=== PATIENT | male | born 1960 | race Hispanic/Latino ===

== ENCOUNTER 2017-01-05 12:42 | Inpatient (IN) | payer OTHER ==
[2017-01-05] MEDS ORDERED: Albuterol-Ipratrop 3 mg / 0.5 (3 ml) UD IH STA ×2 (13:25→13:26)
--- NOTE | 2017-01-05 13:26 | ED PDOC ---
HPI: General Adult Time Seen by Provider: 01/05/17 13:17 Chief Complaint (Nursing): Fever Chief Complaint (Provider): Weakness History Per: Patient History/Exam Limitations: no limitations Onset/Duration Of Symptoms: Days (Tues) Current Symptoms Are (Timing): Still Present Additional Complaint(s): Weakness all over, bodyaches, R upper back pain. Decreased appetite. No dyspnea, cough, runny nose, nasal congestion. No numbness, tingles. No headaches or dizziness. Had pneumonia in the past. Has PE hx 40yrs ago and is on coumadin. HIV pos. Past Medical History Reviewed: Nursing Documentation, Vital Signs Vital Signs: Last Vital Signs Temp 101.1 F H 01/05/17 13:07 Pulse 165 H 01/05/17 13:07 Resp 20 01/05/17 13:07 BP 115/78 01/05/17 13:07 Pulse Ox 92 L 01/05/17 13:46 - Medical History PMH: HIV, Hypercholesterolemia, Pneumonia - Surgical History Surgical History: Appendectomy - Family History Family History: States: Unknown Family Hx - Social History Current smoker - smoking cessation education provided: No Alcohol: None Drugs: Denies - Immunization History Hx Tetanus Toxoid Vaccination: Yes (unknown date) Hx Influenza Vaccination: Yes Hx Pneumococcal Vaccination: Yes - Home Medications Home Medications: Ambulatory Orders Medication Instructions Recorded 5-Hydroxytryptophan (5-Htp) [5-Htp] 1 cap PO DAILY 01/05/17 Acetaminophen with Codeine 1 tab PO Q4H PRN 01/05/17 [Tylenol with Codeine #3 Tablet] Emtricitabine/Tenofovir Diso 1 tab PO DAILY 01/05/17 [Truvada 200 MG-300 MG] Finasteride [Proscar] 5 mg PO DAILY 01/05/17 Gabapentin [Neurontin] 300 mg PO TID 01/05/17 Multivitamin [Multi-Vitamin Daily] 1 tab PO DAILY 01/05/17 Nevirapine [Viramune] 200 mg PO BID 01/05/17 Oxandrolone [Oxandrin] 10 mg PO BID 01/05/17 Rosuvastatin Calcium [Crestor] 10 mg PO DAILY 01/05/17 Tamsulosin [Flomax] 0.4 mg PO DAILY 01/05/17 Testosterone Cypionate 200 mg PO Q14D 09/21/17 [Depo-Testosterone Inj] Testosterone [Androgel] 1 appl TOP DAILY 01/05/17 Valacyclovir HCl [Valacyclovir] 500 mg PO DAILY 01/05/17 Warfarin [Coumadin] 10 mg PO DAILY 01/05/17 buPROPion XL [Wellbutrin XL] 300 mg PO DAILY 01/05/17 traZODone [Desyrel] 100 mg PO HS 01/05/17 - Allergies Allergies/Adverse Reactions: Allergies Allergy/AdvReac Type Severity Reaction Status Date / Time No Known Allergies Allergy Verified 11/19/14 12:59 Review of Systems ROS Statement: Except As Marked, All Systems Reviewed And Found Negative Constitutional: Positive for: Weakness Musculoskeletal: Positive for: Back Pain, Other (bodyaches) Neurological: Positive for: Weakness Physical Exam - Reviewed Nursing Documentation Reviewed: Yes Vital Signs Reviewed: Yes - Physical Exam Appears: Positive for: Uncomfortable Head Exam: Positive for: ATRAUMATIC, NORMAL INSPECTION, NORMOCEPHALIC Skin: Positive for: Normal Color, Warm, DRY Eye Exam: Positive for: EOMI, Normal appearance, PERRL ENT: Positive for: Normal ENT Inspection Neck: Positive for: Normal, Painless ROM Cardiovascular/Chest: Positive for: Regular Rate, Rhythm, Chest Non Tender. Negative for: Edema Respiratory: Positive for: Decreased Breath Sounds, Wheezing (mild b/l). Negative for: Accessory Muscle Use Gastrointestinal/Abdominal: Positive for: Normal Exam, Bowel Sounds, Soft. Negative for: Tenderness Back: Positive for: Other (mild R upper back). Negative for: L CVA Tenderness, R CVA Tenderness Extremity: Positive for: Normal ROM. 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 Negative for: Motor/Sensory Deficits, Facial Droop - Laboratory Results Result Diagrams: 01/05/17 13:40 01/05/17 13:40 Interpretation Of Abn Labs: 16.7 wbc - ECG ECG: Positive for: Interpreted By Me, Viewed By Me Interpretation Of Abn EKG: aflutter Interpretation Of ECG: repeat EKG: HR 156 afib. O2 Sat by Pulse Oximetry: 92 Pulse Ox Interpretation: Abnormal - Radiology X-Ray: Interpreted by Me, Viewed By Me X-Ray Interpretation: Infiltrates (RLL) - Progress ED Course And Treament: 1340: Fluids for hydration. Continue monitoring hr and fever. Likely improvement expected post tylenol and fluids. Consider repeat ekg and meds for aflutter if needed. Source of infection in lungs. 1451: Stable. Spoke with Dr. Chatterjee. Will admit ICU. Spoke with [facility] Dr. Jimenez. Will admit. Pt. feels better. AAOx3. Speaking in full sentences. 1537: Stable. Spoke with Dr. Hartmann. Made aware of presentation and findings. Wants pt. to get 10mg IV cardizem. No drip. Continue fluids. - Critical Care Total Time (In Min): 60 Documented Critical Care: Time excludes all time spent performint seperately billable procedures Disposition - Clinical Impression Clinical Impression: Pneumonia, Atrial fibrillation, Severe sepsis - Patient ED Disposition Is Patient to be Admitted: Yes Counseled Patient/Family Regarding: Studies Performed, Diagnosis - Disposition Disposition Time: 14:54 Condition: CRITICAL - Pt Status Changed To: Hospital Disposition Of: Inpatient - Admit Certification Admit to Inpatient:: After my assessment, the patient will require hospitalization for at least two midnights. This is because of the severity of symptoms shown, intensity of services needed, and/or the medical risk in this patient being treated as an outpatient. - POA Present On Arrival: None
[2017-01-05] MEDS ORDERED: Albuterol-Ipratrop 3 mg / 0.5 (3 ml) UD ONE (13:34)
[2017-01-05] MEDS ORDERED: cefTRIAXone (Rocephin) 1 gm Inj IV ONE (13:40)
[2017-01-05 14:03] LABS: ABG ALLEN TEST YES; ARTERIAL BLOOD GAS HCO3 25.2 mmol/L (21-28); ARTERIAL BLOOD GAS PO2 67 mm/Hg (80-100)
[2017-01-05 14:05] LABS: BASO % 0.1 % (0.0-2.0); HEMATOCRIT 46.5 % (35.0-51.0); LYMPH # 0.7 K/uL (1.0-4.3); LYMPH % 4.4 % (20.0-40.0); MEAN CELL VOLUME 87.6 fl (80.0-94.0); MEAN CORPUSCULAR HEMOGLOBIN 28.7 pg (27.0-31.0); MEAN CORPUSCULAR HGB CONC 32.8 g/dL (33.0-37.0); MEAN PLATELET VOLUME 7.9 fl (7.2-11.7); MONO # 0.9 K/uL (0.0-0.8); MONO % 5.5 % (0.0-10.0); PLATELET COUNT 178 K/uL (130-400); WHITE BLOOD COUNT 16.7 K/uL (4.8-10.8)
[2017-01-05] MEDS ORDERED: cefTRIAXone (Rocephin) 1 gm Inj ONE (14:15)
[2017-01-05] MEDS ORDERED: Azithromycin 500 MG IV IVPB ONE (14:15)
[2017-01-05 14:22] LABS: ALKALINE PHOSPHATASE 87 U/L (38-126); ALT/SGPT 44 U/L (21-72); AST/SGOT 30 U/L (17-59); BLOOD UREA NITROGEN 13 mg/dl (9-20); CALCIUM 8.2 mg/dL (8.4-10.2); CARBON DIOXIDE 22 mmol/L (22-30); CHLORIDE 100 mmol/L (98-107); GFR AFRICAN-AMERICAN > 60; GLUCOSE,RANDOM 108 mg/dL (75-110); POTASSIUM 4.3 MMOL/L (3.6-5.0); SODIUM 130 mmol/l (132-148); TOTAL PROTEIN 6.2 G/DL (6.3-8.2)
[2017-01-05 14:23] LABS: ALB/GLOB RATIO 1.1 (1.0-2.1)
--- NOTE | 2017-01-05 14:27 | RAD ---
HISTORY: Sepsis Patient COMPARISON: 04/06/2013. FINDINGS: LUNGS: The lungs are well inflated. There is dense consolidation in the right lower lobe. PLEURA: Small right pleural effusion. No large left pleural effusion. No pneumothorax. CARDIOVASCULAR: Normal. OSSEOUS STRUCTURES: No significant abnormalities. VISUALIZED UPPER ABDOMEN: Normal. OTHER FINDINGS: None. IMPRESSION: Right lower lobe pneumonia and small right pleural effusion. Follow-up after medical management is recommended to ensure complete resolution.
[2017-01-05] MEDS ORDERED: Acetaminophen-Codeine 300/30 mg Tab PO PRN (14:55)
[2017-01-05 14:57] LABS: PARTIAL THROMBOPLASTIN TIME 50.7 Seconds (25.6-37.1)
[2017-01-05] MEDS ORDERED: Potassium Phosphate 30 MMOLE in Dextrose 5% In Water 250 ML IV ONE (15:20)
[2017-01-05 16:01] LABS: NEUTROPHIL 86 % (42-75); TOTAL CELLS COUNTED 100
[2017-01-05 16:17] LABS: RBC URINE 6 /hpf (0-3); URINE BACTERIA RARE (<OCC); URINE BILIRUBIN NEGATIVE (NEGATIVE); URINE BLOOD SMALL (NEGATIVE); URINE COLOR YELLOW (YELLOW); URINE GLUCOSE (UA) NEG (Normal); URINE KETONE NEGATIVE (NEGATIVE); URINE LEUKOCYTE ESTERASE NEG Leu/uL (Negative); URINE PROTEIN 30 mg/dL (NEGATIVE); WBC URINE 1 /hpf (0-5)
[2017-01-05] MEDS ORDERED: Sodium Chloride 0.9% 2,500 ML IV SCH (16:45)
--- NOTE | 2017-01-05 16:56 | CP.CCUPN ---
CCU Subjective - Physician Review Subjective (Free Text): ICU Consultation for Admission: 56M admitted for SOB, fevers/chills/sweats, Right upper back pain, and tachycardia, found to be in A flutter which changed into A Fib with RVR after 3 L fluid challenge, no overt hypotension noted in ER, presently awake and alert, no obvious distress at bed rest, SPo2 95% on RA, started on Cardizem drip for rate control. Initial eval also noted CXR showing RLL infiltrate. Meds administered in ER noted: Azithro/Rocephin, Tylenol for fever, and steroids. He denies any chest pain, palpitations, cough, recent URI, no travels, nor other new activities, abd pain, change in BMs, weight loss, focal weakness. He is followed by Dr. Brooks in the [facility], states he is on Truvada and another agent and is in the midst of switching to monotherapy. 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 Other vitals and I/O's reviewed. Allergies: NKDA Home Meds: Percocet, Weelbutrin, Emtric/Tenof, Viramune, Valacycolvir, Gabapentine, Oxandrine, Flomax, Proscar, Androgel, Desyrel, Crestor, Warfarin 10mg qd. ROS: No other pertinent negs or positives on 10+ system review. PMSFH: All other Nursing and physician documentation reviewed to date; no new pertinent info noted relevant to current medical problems. Denies ETOH/ Tobacco use. MAJOR PROBLEMS: 1. Acute resp insufficiency 2 RLL Pneumonia without Severe Sepsis or bacteremia 2. New onset / Paroxysmal A Flutter-Fib with RVR 3. Hyponatremia / Hypophosphatemia 4. 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 Testosterone / Androgen therapy Dependency 6. HIV Disease 7. Major Depression PLAN: 1. Empiric abx coverage started. W/u for Cap and atypical organism infection, including Legionella. No further need to continue Solumedrol. 2. IV Cardizem drip 3. ECHO 4. CT Chest 5. HIV status with viral load and T cell studies. 6. Saline IVFs for now, check serum osmo, urine osmo, urine lytes. Could be due to possible SIADH from pneumonia as well. He does not appear to be hypovolemic nor hypervolemic. 7. No need for assisted breathing support. Could be managed further on Telemetry unit and move to ICU if he fails to respond to current abxs or needs MV support. CCU Objective - Vital Signs / Intake & Output Vital Signs (Last 4 hours): Vital Signs Temp Pulse Resp BP Pulse Ox 01/05/17 16:20 98.2 F 136 H 18 117/85 99 01/05/17 16:09 92 L 01/05/17 14:10 101 F H 01/05/17 14:08 98.2 F 86 18 123/86 97 01/05/17 13:07 101.1 F H 165 H 20 115/78 92 L Intake and Output (Last 8hrs): Intake & Output 01/05/17 01/05/17 01/05/17 06:59 14:59 22:59 Weight 205 lb - Physical Exam Head: Positive for: Abrasion Pupils: Positive for: PERRL Extroacular Muscles: Positive for: EOMI Conjunctiva: Positive for: Normal Mouth: Positive for: Moist Mucous Membranes, Normal Tounge Pharnyx: Positive for: Normal Neck: Negative for: JVD, Lymphadenopathy Respiratory/Chest: Positive for: Decreased Breath Sounds (R base), Rhonchi. Negative for: Accessory Muscle Use, Wheezes Cardiovascular: Positive for: Irregular Rhythm, Tachycardic. Negative for: Murmurs, Rub Abdomen: Positive for: Normal Bowel Sounds. Negative for: Tenderness, Distention Lower Extremity: Positive for: Normal Inspection. Negative for: Edema, CALF TENDERNESS, NORMAL PULSES Neurological: Positive for: GCS=15, Speech Normal, Motor Func Grossly Intact, Normal Sensory Function Skin: Positive for: Warm. Negative for: Rashes Psychiatric: Positive for: Alert, Oriented x 3, Normal Concentration, Normal Affect - Medications Active Medications: Active Medications Generic Name Dose Route Start Last Admin Trade Name Freq PRN Reason Stop Dose Admin Acetaminophen 650 mg 01/05/17 15:06 Tylenol 325mg Tab PO Q6H PRN Fever >100.4 F Acetaminophen/Codeine Phosphate 1 tab 01/05/17 14:55 Tylenol/Codeine 300 Mg/30 Mg PO Q4H PRN Pain, severe (8-10) Atorvastatin Calcium 20 mg 01/05/17 22:00 Lipitor PO HS [facility] Emtricitabine/Tenofovir 1 tab 01/06/17 09:00 Truvada 200 Mg-300 Mg PO DAILY [facility] Finasteride 5 mg 01/06/17 09:00 Proscar PO DAILY [facility] Gabapentin 300 mg 01/05/17 17:00 Neurontin PO TID [facility] Home Med 1 cap 01/06/17 09:00 5-Hydroxytryptophan (5-Htp) [5-Htp] PO DAILY [facility] 300 mg 01/06/17 09:00 Bupropion Xl [Wellbutrin Xl] PO DAILY [facility] 1 appl 01/06/17 09:00 Testosterone [Androgel] TOP DAILY [facility] Home Med 500 mg 01/06/17 09:00 Valacyclovir Hcl [Valacyclovir] PO DAILY [facility] Potassium Phosphate 30 mmole/ 260 mls @ 65 mls/hr 01/05/17 15:20 Dextrose IV 01/05/17 19:19 .Q4H ONE Azithromycin 500 mg/ Sodium 250 mls @ 250 mls/hr 01/06/17 09:00 Chloride IVPB DAILY [facility] Ceftriaxone Sodium 1 gm/ 100 mls @ 100 mls/hr 01/06/17 09:00 Sodium Chloride IVPB DAILY [facility] Sodium Chloride 2,500 mls @ 130 mls/hr 01/05/17 16:45 Sodium Chloride 0.9% IV 01/06/17 16:42 .[id number] [facility] Multivitamins/Minerals 1 tab 01/06/17 09:00 Therapeutic-M Tab PO DAILY [facility] Nevirapine 200 mg 01/05/17 17:00 Viramune PO BID [facility] Oxandrolone 10 mg 01/05/17 17:00 Oxandrin PO BID [facility] Tamsulosin HCl 0.4 mg 01/06/17 09:00 Flomax PO DAILY [facility] Trazodone HCl 100 mg 01/05/17 22:00 Desyrel PO HS [facility] - Patient Studies Lab Studies: Lab Studies 01/05/17 01/05/17 01/05/17 Range/Units 15:43 13:53 13:40 WBC (4.8-10.8) K/uL RBC (4.40-5.90) Mil/uL Hgb (12.0-18.0) g/dL Hct (35.0-51.0) % MCV (80.0-94.0) fl MCH (27.0-31.0) pg MCHC (33.0-37.0) g/dL RDW (11.5-14.5) % Plt Count (130-400) K/uL MPV (7.2-11.7) fl Neut % (Auto) (50.0-75.0) % Lymph % (Auto) (20.0-40.0) % [place] % (Auto) (0.0-10.0) % Eos % (Auto) (0.0-4.0) % Baso % (Auto) (0.0-2.0) % Neut # (1.8-7.0) K/uL Lymph # (1.0-4.3) K/uL [place] # (0.0-0.8) K/uL Eos # (0.0-0.7) K/uL Baso # (0.0-0.2) K/uL Neutrophils % (Manual) (42-75) % Lymphocytes % (Manual) (20-50) % Monocytes % (Manual) (0-10) % Platelet Estimate (NORMAL) Anisocytosis (manual) PT (9.8-13.1) Seconds INR (0.9-1.2) APTT (25.6-37.1) Seconds pCO2 29 L (35-45) mm/Hg pO2 67 L (80-100) mm/Hg HCO3 25.2 (21-28) mmol/L ABG pH 7.50 H (7.35-7.45) ABG Total CO2 23.5 (22-28) mmol/L ABG O2 Saturation 97.2 (95-98) % ABG Base Excess 0.6 (-2.0-3.0) mmol/L Reji Test Yes ABG Potassium 3.9 (3.6-5.2) mmol/L A-a O2 Difference 46.0 mm/Hg Glucose 112 H (75-110) mg/dL Lactate 1.1 (0.7-2.1) mmol/L FiO2 21.0 % Sodium 129.0 L (132-148) mmol/l Potassium (3.6-5.0) MMOL/L Chloride 99.0 (98-107) mmol/L Carbon Dioxide (22-30) mmol/L Anion Gap (10-20) BUN (9-20) mg/dl Creatinine (0.8-1.5) mg/dL Est GFR ( Amer) Est GFR (Non-Af Amer) Random Glucose (75-110) mg/dL Calcium (8.4-10.2) mg/dL Phosphorus (2.5-4.5) mg/dl Magnesium (1.6-2.3) MG/DL Total Bilirubin (0.2-1.3) mg/dl AST (17-59) U/L ALT (21-72) U/L Alkaline Phosphatase (38-126) U/L Troponin I (0.00-0.120) ng/mL NT-Pro-B Natriuret Pep (0-900) pg/ml Total Protein (6.3-8.2) G/DL Albumin (3.5-5.0) g/dL Globulin (2.2-3.9) gm/dL Albumin/Globulin Ratio (1.0-2.1) Arterial Blood Potassium 3.9 (3.6-5.2) mmol/L Urine Color Yellow (YELLOW) Urine Clarity Slighty-cloudy (Clear) Urine pH 6.0 (5.0-8.0) Ur Specific [place] 1.012 (1.003-1.030) Urine Protein 30 (NEGATIVE) mg/dL Urine Glucose (UA) Neg (Normal) mg/dL Urine Ketones Negative (NEGATIVE) mg/dL Urine Blood Small (NEGATIVE) Urine Nitrate Negative (NEGATIVE) Urine Bilirubin Negative (NEGATIVE) Urine Urobilinogen 4.0 (0.2-1.0) mg/dL Ur Leukocyte Esterase Neg (Negative) Aure/uL Urine RBC (Auto) 6 H (0-3) /hpf Urine Microscopic WBC 1 (0-5) /hpf Urine Bacteria Rare (<OCC) Influenza Typ A,B (EIA) Negative for flu a/b (NEGATIVE) 01/05/17 01/05/17 01/05/17 Range/Units 13:40 13:40 13:40 WBC 16.7 H D (4.8-10.8) K/uL RBC 5.32 (4.40-5.90) Mil/uL Hgb 15.3 (12.0-18.0) g/dL Hct 46.5 (35.0-51.0) % MCV 87.6 D (80.0-94.0) fl MCH 28.7 (27.0-31.0) pg MCHC 32.8 L (33.0-37.0) g/dL RDW 17.0 H (11.5-14.5) % Plt Count 178 (130-400) K/uL MPV 7.9 (7.2-11.7) fl Neut % (Auto) 90.0 H (50.0-75.0) % Lymph % (Auto) 4.4 L (20.0-40.0) % [place] % (Auto) 5.5 (0.0-10.0) % Eos % (Auto) 0.0 (0.0-4.0) % Baso % (Auto) 0.1 (0.0-2.0) % Neut # 15.0 H (1.8-7.0) K/uL Lymph # 0.7 L (1.0-4.3) K/uL [place] # 0.9 H (0.0-0.8) K/uL Eos # 0.0 (0.0-0.7) K/uL Baso # 0.0 (0.0-0.2) K/uL Neutrophils % (Manual) 86 H (42-75) % Lymphocytes % (Manual) 5 L (20-50) % Monocytes % (Manual) 9 (0-10) % Platelet Estimate Normal (NORMAL) Anisocytosis (manual) Slight PT 78.8 H* (9.8-13.1) Seconds INR 7.4 H (0.9-1.2) APTT 50.7 H (25.6-37.1) Seconds pCO2 (35-45) mm/Hg pO2 (80-100) mm/Hg HCO3 (21-28) mmol/L ABG pH (7.35-7.45) ABG Total CO2 (22-28) mmol/L ABG O2 Saturation (95-98) % ABG Base Excess (-2.0-3.0) mmol/L Reji Test ABG Potassium (3.6-5.2) mmol/L A-a O2 Difference mm/Hg Glucose (75-110) mg/dL Lactate (0.7-2.1) mmol/L FiO2 % Sodium 130 L (132-148) mmol/l Potassium 4.3 (3.6-5.0) MMOL/L Chloride 100 (98-107) mmol/L Carbon Dioxide 22 (22-30) mmol/L Anion Gap 12 (10-20) BUN 13 (9-20) mg/dl Creatinine 1.1 (0.8-1.5) mg/dL Est GFR ( Amer) > 60 Est GFR (Non-Af Amer) > 60 Random Glucose 108 (75-110) mg/dL Calcium 8.2 L (8.4-10.2) mg/dL Phosphorus 2.0 L (2.5-4.5) mg/dl Magnesium 2.0 (1.6-2.3) MG/DL Total Bilirubin 1.0 (0.2-1.3) mg/dl AST 30 (17-59) U/L ALT 44 (21-72) U/L Alkaline Phosphatase 87 (38-126) U/L Troponin I < 0.0120 (0.00-0.120) ng/mL NT-Pro-B Natriuret Pep 940 H (0-900) pg/ml Total Protein 6.2 L (6.3-8.2) G/DL Albumin 3.3 L (3.5-5.0) g/dL Globulin 2.9 (2.2-3.9) gm/dL Albumin/Globulin Ratio 1.1 (1.0-2.1) Arterial Blood Potassium (3.6-5.2) mmol/L Urine Color (YELLOW) Urine Clarity (Clear) Urine pH (5.0-8.0) Ur Specific [place] (1.003-1.030) Urine Protein (NEGATIVE) mg/dL Urine Glucose (UA) (Normal) mg/dL Urine Ketones (NEGATIVE) mg/dL Urine Blood (NEGATIVE) Urine Nitrate (NEGATIVE) Urine Bilirubin (NEGATIVE) Urine Urobilinogen (0.2-1.0) mg/dL Ur Leukocyte Esterase (Negative) Aure/uL Urine RBC (Auto) (0-3) /hpf Urine Microscopic WBC (0-5) /hpf Urine Bacteria (<OCC) Influenza Typ A,B (EIA) (NEGATIVE) Laboratory Results - last 24 hr 01/05/17 01/05/17 01/05/17 13:40 13:40 13:40 WBC 16.7 H D RBC 5.32 Hgb 15.3 Hct 46.5 MCV 87.6 D MCH 28.7 MCHC 32.8 L RDW 17.0 H Plt Count 178 MPV 7.9 Neut % (Auto) 90.0 H Lymph % (Auto) 4.4 L [place] % (Auto) 5.5 Eos % (Auto) 0.0 Baso % (Auto) 0.1 Neut # 15.0 H Lymph # 0.7 L [place] # 0.9 H Eos # 0.0 Baso # 0.0 Neutrophils % (Manual) 86 H Lymphocytes % (Manual) 5 L Monocytes % (Manual) 9 Platelet Estimate Normal Anisocytosis (manual) Slight PT 78.8 H* INR 7.4 H APTT 50.7 H pCO2 pO2 HCO3 ABG pH ABG Total CO2 ABG O2 Saturation ABG Base Excess Reji Test ABG Potassium A-a O2 Difference Glucose Lactate FiO2 Sodium 130 L Potassium 4.3 Chloride 100 Carbon Dioxide 22 Anion Gap 12 BUN 13 Creatinine 1.1 Est GFR ( Amer) > 60 Est GFR (Non-Af Amer) > 60 Random Glucose 108 Calcium 8.2 L Phosphorus 2.0 L Magnesium 2.0 Total Bilirubin 1.0 AST 30 ALT 44 Alkaline Phosphatase 87 Troponin I < 0.0120 NT-Pro-B Natriuret Pep 940 H Total Protein 6.2 L Albumin 3.3 L Globulin 2.9 Albumin/Globulin Ratio 1.1 Arterial Blood Potassium Urine Color Urine Clarity Urine pH Ur Specific [place] Urine Protein Urine Glucose (UA) Urine Ketones Urine Blood Urine Nitrate Urine Bilirubin Urine Urobilinogen Ur Leukocyte Esterase Urine RBC (Auto) Urine Microscopic WBC Urine Bacteria Influenza Typ A,B (EIA) 01/05/17 01/05/17 01/05/17 13:40 13:53 15:43 WBC RBC Hgb Hct MCV MCH MCHC RDW Plt Count MPV Neut % (Auto) Lymph % (Auto) [place] % (Auto) Eos % (Auto) Baso % (Auto) Neut # Lymph # [place] # Eos # Baso # Neutrophils % (Manual) Lymphocytes % (Manual) Monocytes % (Manual) Platelet Estimate Anisocytosis (manual) PT INR APTT pCO2 29 L pO2 67 L HCO3 25.2 ABG pH 7.50 H ABG Total CO2 23.5 ABG O2 Saturation 97.2 ABG Base Excess 0.6 Reji Test Yes ABG Potassium 3.9 A-a O2 Difference 46.0 Glucose 112 H Lactate 1.1 FiO2 21.0 Sodium 129.0 L Potassium Chloride 99.0 Carbon Dioxide Anion Gap BUN Creatinine Est GFR ( Amer) Est GFR (Non-Af Amer) Random Glucose Calcium Phosphorus Magnesium Total Bilirubin AST ALT Alkaline Phosphatase Troponin I NT-Pro-B Natriuret Pep Total Protein Albumin Globulin Albumin/Globulin Ratio Arterial Blood Potassium 3.9 Urine Color Yellow Urine Clarity Slighty-cloudy Urine pH 6.0 Ur Specific [place] 1.012 Urine Protein 30 Urine Glucose (UA) Neg Urine Ketones Negative Urine Blood Small Urine Nitrate Negative Urine Bilirubin Negative Urine Urobilinogen 4.0 Ur Leukocyte Esterase Neg Urine RBC (Auto) 6 H Urine Microscopic WBC 1 Urine Bacteria Rare Influenza Typ A,B (EIA) Negative for flu a/b Radiology Interpretations (Free Text): CXR ( my interp): RLL infiltrate with air b-gram. Review of Systems - Review of Systems All systems: reviewed and no additional remarkable complaints except (as above) Critical Care Progress Note - Prophylaxis GI Prophylaxis GI: Not Indicated - Prophylaxis DVT Prophylaxis DVT: Not Indicated (on Warfarin) - Nutrition Nutrition: Nutrition Category Date Time Status Regular Diet [DIET] Diets 01/05/17 Dinner Active
[2017-01-05] MEDS ORDERED: Influenza Vaccine 18yr & older 0.5 ML/45 MCG SYR IM ONE (21:00)
[2017-01-05] MEDS ORDERED: Pneumococcal 23-Valent Vaccine IM ONE (21:00)
[2017-01-06 05:35] LABS: HEMATOCRIT 43.9 % (35.0-51.0); MEAN CELL VOLUME 89.1 fl (80.0-94.0); MEAN CORPUSCULAR HEMOGLOBIN 28.8 pg (27.0-31.0); MEAN CORPUSCULAR HGB CONC 32.3 g/dL (33.0-37.0); RED CELL DISTRIBUTION WIDTH 17.6 % (11.5-14.5); WHITE BLOOD COUNT 12.5 K/uL (4.8-10.8)
[2017-01-06 05:45] LABS: ALB/GLOB RATIO 1.1 (1.0-2.1); ALKALINE PHOSPHATASE 63 U/L (38-126); ALT/SGPT 53 U/L (21-72); AST/SGOT 31 U/L (17-59); BILIRUBIN,TOTAL 0.6 mg/dl (0.2-1.3); BLOOD UREA NITROGEN 13 mg/dl (9-20); CALCIUM 8.4 mg/dL (8.4-10.2); CARBON DIOXIDE 24 mmol/L (22-30); CHLORIDE 108 mmol/L (98-107); GFR AFRICAN-AMERICAN > 60; GLUCOSE,RANDOM 139 mg/dL (75-110); MAGNESIUM 2.4 MG/DL (1.6-2.3); POTASSIUM 4.2 MMOL/L (3.6-5.0); SODIUM 139 mmol/l (132-148); TOTAL PROTEIN 5.8 G/DL (6.3-8.2)
[2017-01-06 05:50] LABS: PARTIAL THROMBOPLASTIN TIME 46.1 Seconds (25.6-37.1)
--- NOTE | 2017-01-06 07:50 | CP.PCM.CON ---
History of Present Illness - History of Present Illness History of Present Illness: I was asked to see patient by Dr Jimenez and Dr Cruz Patient is a 56 year old male with PMH HIV, and hypercoagulable state who presents with fever weakness and malaise. The patient states symptoms began a few days ago. The patient presented to [facility] tachycardic, hypotensive. He was found to be in atrial fibrillation.. He was admitted to the ICU for further management. He converted to sinus rhythm this am. He feels better today. Review of Systems - Constitutional Constitutional: absent: As Per HPI, Anorexia, Chills, Daytime Sleepiness, Excessive Sweating, Fatigue, Fever, Frequent Falls, Headache, Increased Appetite , Lethargy, Malaise, Night Sweats, Snoring, Sleep Apnea, Weight Gain, Weight Loss, Weakness, Other - EENT Eyes: absent: As Per HPI, Blind Spots, Blurred Vision, Change in Vision, Decreased Night Vision, Diplopia, Discharge, Dry Eye, Exophthalmos, Floaters, Irritation, Itchy Eyes, Loss of Peripheral Vision, Pain, Photophobia, Requires Corrective Lenses, Sees Flashes, Spots in Vision, Tunnel Vision, Other Visual Disturbances, Loss of Vision, Other Ears: absent: As Per HPI, Decreased Hearing, Ear Discharge, Ear Pain, Tinnitus, Abnormal Hearing, Disequilibrium, Dizziness, Other Nose/Mouth/Throat: absent: As Per HPI, Epistaxis, Nasal Congestion, Nasal Discharge, Nasal Obstruction, Nasal Trauma, Nose Pain, Post Nasal Drip, Sinus Pain, Sinus Pressure, Bleeding Gums, Change in Voice, Dental Pain, Dry Mouth, Dysphagia, Halitosis, Hoarsness, Lip Swelling, Mouth Lesions, Mouth Pain, Odynophagia, Sore Throat, Throat Swelling, Tongue Swelling, Facial Pain, Neck Pain, Neck Mass, Other - Cardiovascular Cardiovascular: absent: As Per HPI, Acrocyanosis, Chest Pain, Chest Pain at Rest , Chest Pain with Activity, Claudication, Diaphoresis, Dyspnea, Dyspnea on Exertion, Edema, Irregular Heart Rhythm, Pain Radiating to Arm/Neck/Jaw, Leg Edema, Leg Ulcers, Lightheadedness, Orthopnea, Palpitations, Paroxysmal Nocturnal Dyspnea, Pedal Edema, Radiating Pain, Rapid Heart Rate, Slow Heart Rate, Syncope, Other - Respiratory Respiratory: Cough - Gastrointestinal Gastrointestinal: absent: As Per HPI, Abdominal Pain, Belching, Bloating, Change in Bowel Habits, Change in Stool Character, Coffee Ground Emesis, Constipation, Cramping, Diarrhea, Dyspepsia, Dysphagia, Early Satiety, Excessive Flatus, Fecal Incontinence, Heartburn, Hematemesis, Hematochezia, Loose Stools, Melena, Nausea, Odynophagia, Temesmus, Vomiting, Other - Genitourinary Genitourinary: absent: As Per HPI, Change in Urinary Stream, Difficulty Urinating, Dysuria, Flank Pain, Hematuria, Pyuria, Nocturia, Urinary Incontinence, Urinary Frequency, Urinary Hesitance, Urinary Urgency, Voiding Freq/Small Amts, Freq UTI, Hx Renal/Bladder Calculi, Hx /Renal Surgery, Bladder Distension, Other - Musculoskeletal Musculoskeletal: absent: As Per HPI, Abnormal Gait, Arthralgias, Atrophy, Back Pain, Deformity, Joint Swelling, Limited Range of Motion, Loss of Height, Muscle Cramps, Muscle Weakness, Myalgias, Neck Pain, Numbness, Radiating Pain into Limb, Stiffness, Tingling, Other - Integumentary Integumentary: absent: As Per HPI, Acne, Alopecia, Bleeding Lesions, Change in Hair, Change in Nails, Change in Pigmentation, Changing Lesions, Dry Skin, Erythema, Furuncle, Hirsutism, Lesions, New Lesions, Non-Healing Lesions, Photosensitivity, Pruritus, Rash, Skin Pain, Skin Ulcer, Sores, Striae, Swelling , Unusual Bruising, Wounds, Jaundice, Other - Neurological Neurological: absent: As Per HPI, Abnormal Gait, Abnormal Hearing, Abnormal Movements, Abnormal Speech, Behavioral Changes, Burning Sensations, Confusion, Convulsions, Disequilibrium, Dizziness, Numbness, Focal Weakness, Frequent Falls , Headaches, Lack of Coordination, Loss of Vision, Memory Loss, Paresthesias, Radicular Pain, Restless Legs, Sensory Deficit, Syncope, Tingling, Tremor, Vertigo, Weakness, Other Visual Disturbances, Other - Psychiatric Psychiatric: absent: As Per HPI, Abnormal Sleep Pattern, Anhedonia, Anxiety, Auditory Hallucinations, Behavioral Changes, Change in Appetite, Change in Libido, Confusion, Depression, Difficulty Concentrating, Hallucinations, Homicidal Ideation, Hopelessness, Irritability, Memory Loss, Mood Swings, Panic Attacks, Paranoia, Suicidal Ideation, Visual Hallucinations, Tactile Hallucinations, Other - Endocrine Endocrine: absent: As Per HPI, Change in Body Appearance, Change in Libido, Cold Intolorance, Deepening of Voice, Excessive Sweating, Fatigue, Flushing, Heat Intolorance, Increase in Ring/Shoe/Hat Size, Palpitations, Polydipsia, Polyphagia, Polyuria, Other - Hematologic/Lymphatic Hematologic: absent: As Per HPI, Easy Bleeding, Easy Bruising, Lymphadenopathy, Other Past Patient History - Past Medical History & Family History Past Medical History?: Yes - Past Social History Smoking Status: Never Smoked - CARDIAC Hx Hypercholesterolemia: Yes - PULMONARY Hx Pneumonia: Yes - HEMATOLOGICAL/ONCOLOGICAL Hx AIDS: No Hx Human Immunodeficiency Virus (HIV): No - MUSCULOSKELETAL/RHEUMATOLOGICAL Hx Falls: No - PSYCHIATRIC Hx Substance Use: No - SURGICAL HISTORY Hx Appendectomy: Yes - ANESTHESIA Hx Anesthesia: Yes Hx Anesthesia Reactions: No Meds Allergies/Adverse Reactions: Allergies Allergy/AdvReac Type Severity Reaction Status Date / Time No Known Allergies Allergy Verified 11/19/14 12:59 - Medications Medications: Current Medications Acetaminophen (Tylenol 325mg Tab) 650 mg PO Q6H PRN PRN Reason: Fever >100.4 F Acetaminophen/Codeine Phosphate (Tylenol/Codeine 300 Mg/30 Mg) 1 tab PO Q4H PRN PRN Reason: Pain, severe (8-10) Atorvastatin Calcium (Lipitor) 20 mg PO HS [facility] Last Admin: 01/05/17 21:33 Dose: 20 mg Emtricitabine/Tenofovir (Truvada 200 Mg-300 Mg) 1 tab PO DAILY [facility] Finasteride (Proscar) 5 mg PO DAILY [facility] Gabapentin (Neurontin) 300 mg PO TID [facility] Last Admin: 01/05/17 21:33 Dose: 300 mg Home Med (5-Hydroxytryptophan (5-Htp) [5-Htp]) 1 cap PO DAILY [facility] Home Med (Bupropion Xl [Wellbutrin Xl]) 300 mg PO DAILY [facility] Home Med (Testosterone [Androgel]) 1 appl TOP DAILY [facility] Home Med (Valacyclovir Hcl [Valacyclovir]) 500 mg PO DAILY [facility] Azithromycin 500 mg/ Sodium (Chloride) 250 mls @ 250 mls/hr IVPB DAILY [facility] Ceftriaxone Sodium 1 gm/ (Sodium Chloride) 100 mls @ 100 mls/hr IVPB DAILY [facility] Influenza Virus Vaccine (Afluria (Pf)(18yr & Older)) 0.5 ml IM .ONCE ONE Stop: 01/07/17 21:01 Multivitamins/Minerals (Therapeutic-M Tab) 1 tab PO DAILY [facility] Nevirapine (Viramune) 200 mg PO BID [facility] Last Admin: 01/05/17 23:07 Dose: Not Given Oxandrolone (Oxandrin) 10 mg PO BID [facility] Last Admin: 01/05/17 21:32 Dose: 10 mg Pneumococcal Polyvalent Vaccine (Pneumovax 23 Vaccine) 0.5 ml IM .ONCE ONE Stop: 01/06/17 21:01 Tamsulosin HCl (Flomax) 0.4 mg PO DAILY [facility] Trazodone HCl (Desyrel) 100 mg PO [facility] Last Admin: 01/05/17 21:33 Dose: 100 mg Physical Exam - Constitutional Appears: Non-toxic - Head Exam Head Exam: NORMAL INSPECTION - Eye Exam Eye Exam: Normal appearance - ENT Exam ENT Exam: Mucous Membranes Moist - Neck Exam Neck exam: Positive for: Full Rom - Respiratory Exam Respiratory Exam: NORMAL BREATHING PATTERN - Cardiovascular Exam Cardiovascular Exam: REGULAR RHYTHM - GI/Abdominal Exam GI & Abdominal Exam: Normal Bowel Sounds - Rectal Exam Rectal Exam: Deferred - Extremities Exam Extremities exam: Positive for: pedal edema - Back Exam Back exam: NORMAL INSPECTION - Neurological Exam Neurological exam: Alert, Oriented x3 - Psychiatric Exam Psychiatric exam: Normal Affect - Skin Skin Exam: Normal Color Results - Vital Signs Recent Vital Signs: Last Vital Signs Temp 98.2 F 01/06/17 04:00 Pulse 84 01/06/17 06:00 Resp 19 01/06/17 06:00 BP 130/73 01/06/17 06:00 Pulse Ox 100 01/06/17 06:00 - Labs Result Diagrams: 01/06/17 04:30 01/06/17 04:30 Labs: Laboratory Results - last 24 hr 01/05/17 01/05/17 01/05/17 13:40 13:40 13:40 WBC 16.7 H D RBC 5.32 Hgb 15.3 Hct 46.5 MCV 87.6 D MCH 28.7 MCHC 32.8 L RDW 17.0 H Plt Count 178 MPV 7.9 Neut % (Auto) 90.0 H Lymph % (Auto) 4.4 L [place] % (Auto) 5.5 Eos % (Auto) 0.0 Baso % (Auto) 0.1 Neut # 15.0 H Lymph # 0.7 L [place] # 0.9 H Eos # 0.0 Baso # 0.0 Neutrophils % (Manual) 86 H Lymphocytes % (Manual) 5 L Monocytes % (Manual) 9 Platelet Estimate Normal Anisocytosis (manual) Slight PT 78.8 H* INR 7.4 H APTT 50.7 H pCO2 pO2 HCO3 ABG pH ABG Total CO2 ABG O2 Saturation ABG Base Excess Reji Test ABG Potassium A-a O2 Difference Glucose Lactate FiO2 Sodium 130 L Potassium 4.3 Chloride 100 Carbon Dioxide 22 Anion Gap 12 BUN 13 Creatinine 1.1 Est GFR ( Amer) > 60 Est GFR (Non-Af Amer) > 60 Random Glucose 108 Calcium 8.2 L Phosphorus 2.0 L Magnesium 2.0 Total Bilirubin 1.0 AST 30 ALT 44 Alkaline Phosphatase 87 Troponin I < 0.0120 NT-Pro-B Natriuret Pep 940 H Total Protein 6.2 L Albumin 3.3 L Globulin 2.9 Albumin/Globulin Ratio 1.1 Arterial Blood Potassium Urine Color Urine Clarity Urine pH Ur Specific [place] Urine Protein Urine Glucose (UA) Urine Ketones Urine Blood Urine Nitrate Urine Bilirubin Urine Urobilinogen Ur Leukocyte Esterase Urine RBC (Auto) Urine Microscopic WBC Urine Bacteria Influenza Typ A,B (EIA) 01/05/17 01/05/17 01/05/17 13:40 13:53 15:43 WBC RBC Hgb Hct MCV MCH MCHC RDW Plt Count MPV Neut % (Auto) Lymph % (Auto) [place] % (Auto) Eos % (Auto) Baso % (Auto) Neut # Lymph # [place] # Eos # Baso # Neutrophils % (Manual) Lymphocytes % (Manual) Monocytes % (Manual) Platelet Estimate Anisocytosis (manual) PT INR APTT pCO2 29 L pO2 67 L HCO3 25.2 ABG pH 7.50 H ABG Total CO2 23.5 ABG O2 Saturation 97.2 ABG Base Excess 0.6 Reji Test Yes ABG Potassium 3.9 A-a O2 Difference 46.0 Glucose 112 H Lactate 1.1 FiO2 21.0 Sodium 129.0 L Potassium Chloride 99.0 Carbon Dioxide Anion Gap BUN Creatinine Est GFR ( Amer) Est GFR (Non-Af Amer) Random Glucose Calcium Phosphorus Magnesium Total Bilirubin AST ALT Alkaline Phosphatase Troponin I NT-Pro-B Natriuret Pep Total Protein Albumin Globulin Albumin/Globulin Ratio Arterial Blood Potassium 3.9 Urine Color Yellow Urine Clarity Slighty-cloudy Urine pH 6.0 Ur Specific [place] 1.012 Urine Protein 30 Urine Glucose (UA) Neg Urine Ketones Negative Urine Blood Small Urine Nitrate Negative Urine Bilirubin Negative Urine Urobilinogen 4.0 Ur Leukocyte Esterase Neg Urine RBC (Auto) 6 H Urine Microscopic WBC 1 Urine Bacteria Rare Influenza Typ A,B (EIA) Negative for flu a/b 01/06/17 01/06/17 01/06/17 04:30 04:30 04:30 WBC 12.5 H RBC 4.92 Hgb 14.2 Hct 43.9 MCV 89.1 MCH 28.8 MCHC 32.3 L RDW 17.6 H Plt Count 184 MPV Neut % (Auto) Lymph % (Auto) [place] % (Auto) Eos % (Auto) Baso % (Auto) Neut # Lymph # [place] # Eos # Baso # Neutrophils % (Manual) Lymphocytes % (Manual) Monocytes % (Manual) Platelet Estimate Anisocytosis (manual) PT 67.8 H* D INR 6.3 H D APTT 46.1 H pCO2 pO2 HCO3 ABG pH ABG Total CO2 ABG O2 Saturation ABG Base Excess Reji Test ABG Potassium A-a O2 Difference Glucose Lactate FiO2 Sodium 139 Potassium 4.2 Chloride 108 H Carbon Dioxide 24 Anion Gap 11 BUN 13 Creatinine 0.9 Est GFR ( Amer) > 60 Est GFR (Non-Af Amer) > 60 Random Glucose 139 H Calcium 8.4 Phosphorus 2.0 L Magnesium 2.4 H Total Bilirubin 0.6 AST 31 ALT 53 Alkaline Phosphatase 63 Troponin I NT-Pro-B Natriuret Pep Total Protein 5.8 L Albumin 3.0 L Globulin 2.8 Albumin/Globulin Ratio 1.1 Arterial Blood Potassium Urine Color Urine Clarity Urine pH Ur Specific [place] Urine Protein Urine Glucose (UA) Urine Ketones Urine Blood Urine Nitrate Urine Bilirubin Urine Urobilinogen Ur Leukocyte Esterase Urine RBC (Auto) Urine Microscopic WBC Urine Bacteria Influenza Typ A,B (EIA) - EKG Data EKG shows normal: Sinus rhythm Assessment & Plan (1) Atrial fibrillation Assessment and Plan: patient is currently in sinus rhythm. Likely paroxysmal due to infectious process. recommend echocardiogram to assess for strucutral heart disease. Patient is anticoagulated due to hypercoagulable state. Status: Acute
--- NOTE | 2017-01-06 08:40 | CARD ---
APPROVED REPORT EKG Measurement Heart [id number] <Conclusion> Atrial fibrillation with rapid ventricular response Abnormal ECG
--- NOTE | 2017-01-06 08:41 | CARD ---
APPROVED REPORT EKG Measurement Heart [id number] <Conclusion> Atrial flutter with 2:1 AV conduction Left axis deviation Pulmonary disease pattern Nonspecific ST abnormality Abnormal ECG
--- NOTE | 2017-01-06 08:55 | CP.PCM.HP ---
History of Present Illness - History of Present Illness History of Present Illness: pt admitted for pneumonia/sepsis. pt has h/o hiv but does not know recent cd4 count. overnight started w/ hemoptysis and was placed on resp precautions. no complaints at present. nsr 80s. had run of rapid afib 160s yesterday came down w/ fluids nad fever reduction. cardio at bedside. case d/c w/ cardio/icu bw and imaging reviewed. id consult pending. inr elevated on coumadin. will dc and monitor. no bleeding besdies hemoptysis Present on Admission - Present on Admission Any Indicators Present on Admission: No Review of Systems - Cardiovascular Cardiovascular: Rapid Heart Rate - Respiratory Respiratory: As Per HPI, Cough, Hemoptysis, Chest Congestion Past Patient History - Past Medical History & Family History Past Medical History?: Yes - Past Social History Smoking Status: Never Smoked - CARDIAC Hx Hypercholesterolemia: Yes - PULMONARY Hx Pneumonia: Yes - HEMATOLOGICAL/ONCOLOGICAL Hx AIDS: No Hx Human Immunodeficiency Virus (HIV): No - MUSCULOSKELETAL/RHEUMATOLOGICAL Hx Falls: No - PSYCHIATRIC Hx Substance Use: No - SURGICAL HISTORY Hx Appendectomy: Yes - ANESTHESIA Hx Anesthesia: Yes Hx Anesthesia Reactions: No Meds Allergies/Adverse Reactions: Allergies Allergy/AdvReac Type Severity Reaction Status Date / Time No Known Allergies Allergy Verified 11/19/14 12:59 Physical Exam - Constitutional Appears: Well, Non-toxic, No Acute Distress - Head Exam Head Exam: ATRAUMATIC, NORMAL INSPECTION, NORMOCEPHALIC - Eye Exam Eye Exam: EOMI, Normal appearance, PERRL Pupil Exam: NORMAL ACCOMODATION, PERRL - ENT Exam ENT Exam: Mucous Membranes Moist, Normal Exam - Neck Exam Neck exam: Positive for: Normal Inspection - Respiratory Exam Respiratory Exam: Clear to Auscultation Bilateral, NORMAL BREATHING PATTERN - Cardiovascular Exam Cardiovascular Exam: REGULAR RHYTHM, RRR, +S1, +S2 - GI/Abdominal Exam GI & Abdominal Exam: Normal Bowel Sounds, Soft. absent: Tenderness - Extremities Exam Extremities exam: Positive for: full ROM, normal capillary refill, normal inspection, pedal pulses present - Back Exam Back exam: NORMAL INSPECTION - Neurological Exam Neurological exam: Alert, CN II-XII Intact, Normal Gait, Oriented x3, Reflexes Normal - Psychiatric Exam Psychiatric exam: Normal Affect, Normal Mood - Skin Skin Exam: Dry, Intact, Normal Color, Warm Results - Vital Signs Recent Vital Signs: Last Vital Signs Temp 97.9 F 01/06/17 08:00 Pulse 84 01/06/17 08:00 Resp 33 H 01/06/17 08:00 BP 138/77 01/06/17 08:00 Pulse Ox 98 01/06/17 08:00 - Labs Result Diagrams: 01/06/17 04:30 01/06/17 04:30 Labs: Laboratory Results - last 24 hr 01/05/17 01/05/17 01/05/17 13:40 13:40 13:40 WBC 16.7 H D RBC 5.32 Hgb 15.3 Hct 46.5 MCV 87.6 D MCH 28.7 MCHC 32.8 L RDW 17.0 H Plt Count 178 MPV 7.9 Neut % (Auto) 90.0 H Lymph % (Auto) 4.4 L [place] % (Auto) 5.5 Eos % (Auto) 0.0 Baso % (Auto) 0.1 Neut # 15.0 H Lymph # 0.7 L [place] # 0.9 H Eos # 0.0 Baso # 0.0 Neutrophils % (Manual) 86 H Lymphocytes % (Manual) 5 L Monocytes % (Manual) 9 Platelet Estimate Normal Anisocytosis (manual) Slight PT 78.8 H* INR 7.4 H APTT 50.7 H pCO2 pO2 HCO3 ABG pH ABG Total CO2 ABG O2 Saturation ABG Base Excess Reji Test ABG Potassium A-a O2 Difference Glucose Lactate FiO2 Sodium 130 L Potassium 4.3 Chloride 100 Carbon Dioxide 22 Anion Gap 12 BUN 13 Creatinine 1.1 Est GFR ( Amer) > 60 Est GFR (Non-Af Amer) > 60 Random Glucose 108 Calcium 8.2 L Phosphorus 2.0 L Magnesium 2.0 Total Bilirubin 1.0 AST 30 ALT 44 Alkaline Phosphatase 87 Troponin I < 0.0120 NT-Pro-B Natriuret Pep 940 H Total Protein 6.2 L Albumin 3.3 L Globulin 2.9 Albumin/Globulin Ratio 1.1 Arterial Blood Potassium Urine Color Urine Clarity Urine pH Ur Specific [place] Urine Protein Urine Glucose (UA) Urine Ketones Urine Blood Urine Nitrate Urine Bilirubin Urine Urobilinogen Ur Leukocyte Esterase Urine RBC (Auto) Urine Microscopic WBC Urine Bacteria Influenza Typ A,B (EIA) 01/05/17 01/05/17 01/05/17 13:40 13:53 15:43 WBC RBC Hgb Hct MCV MCH MCHC RDW Plt Count MPV Neut % (Auto) Lymph % (Auto) [place] % (Auto) Eos % (Auto) Baso % (Auto) Neut # Lymph # [place] # Eos # Baso # Neutrophils % (Manual) Lymphocytes % (Manual) Monocytes % (Manual) Platelet Estimate Anisocytosis (manual) PT INR APTT pCO2 29 L pO2 67 L HCO3 25.2 ABG pH 7.50 H ABG Total CO2 23.5 ABG O2 Saturation 97.2 ABG Base Excess 0.6 Reji Test Yes ABG Potassium 3.9 A-a O2 Difference 46.0 Glucose 112 H Lactate 1.1 FiO2 21.0 Sodium 129.0 L Potassium Chloride 99.0 Carbon Dioxide Anion Gap BUN Creatinine Est GFR ( Amer) Est GFR (Non-Af Amer) Random Glucose Calcium Phosphorus Magnesium Total Bilirubin AST ALT Alkaline Phosphatase Troponin I NT-Pro-B Natriuret Pep Total Protein Albumin Globulin Albumin/Globulin Ratio Arterial Blood Potassium 3.9 Urine Color Yellow Urine Clarity Slighty-cloudy Urine pH 6.0 Ur Specific [place] 1.012 Urine Protein 30 Urine Glucose (UA) Neg Urine Ketones Negative Urine Blood Small Urine Nitrate Negative Urine Bilirubin Negative Urine Urobilinogen 4.0 Ur Leukocyte Esterase Neg Urine RBC (Auto) 6 H Urine Microscopic WBC 1 Urine Bacteria Rare Influenza Typ A,B (EIA) Negative for flu a/b 01/06/17 01/06/17 01/06/17 04:30 04:30 04:30 WBC 12.5 H RBC 4.92 Hgb 14.2 Hct 43.9 MCV 89.1 MCH 28.8 MCHC 32.3 L RDW 17.6 H Plt Count 184 MPV Neut % (Auto) Lymph % (Auto) [place] % (Auto) Eos % (Auto) Baso % (Auto) Neut # Lymph # [place] # Eos # Baso # Neutrophils % (Manual) Lymphocytes % (Manual) Monocytes % (Manual) Platelet Estimate Anisocytosis (manual) PT 67.8 H* D INR 6.3 H D APTT 46.1 H pCO2 pO2 HCO3 ABG pH ABG Total CO2 ABG O2 Saturation ABG Base Excess Reji Test ABG Potassium A-a O2 Difference Glucose Lactate FiO2 Sodium 139 Potassium 4.2 Chloride 108 H Carbon Dioxide 24 Anion Gap 11 BUN 13 Creatinine 0.9 Est GFR ( Amer) > 60 Est GFR (Non-Af Amer) > 60 Random Glucose 139 H Calcium 8.4 Phosphorus 2.0 L Magnesium 2.4 H Total Bilirubin 0.6 AST 31 ALT 53 Alkaline Phosphatase 63 Troponin I NT-Pro-B Natriuret Pep Total Protein 5.8 L Albumin 3.0 L Globulin 2.8 Albumin/Globulin Ratio 1.1 Arterial Blood Potassium Urine Color Urine Clarity Urine pH Ur Specific [place] Urine Protein Urine Glucose (UA) Urine Ketones Urine Blood Urine Nitrate Urine Bilirubin Urine Urobilinogen Ur Leukocyte Esterase Urine RBC (Auto) Urine Microscopic WBC Urine Bacteria Influenza Typ A,B (EIA) Assessment & Plan (1) DVT prophylaxis Assessment and Plan: scd and ae hose hold coumadin for elev inr ambulation Status: Acute (2) Atrial fibrillation Assessment and Plan: overanticoagulated nsr at present cardio hold coumadin for now Status: Acute (3) Pneumonia Assessment and Plan: zithromax/rocephin duonebs afb x 3 for hemoptysis resp iso id consult hiv viral load nad cd4 count pending Status: Acute (4) Severe sepsis Assessment and Plan: icu care appears to be doing better ivf Status: Acute Decision To Admit - Pt Status Changed To: Hospital Disposition Of: Inpatient - Admit Certification Admit to Inpatient:: After my assessment, the patient will require hospitalization for at least two midnights. This is because of the severity of symptoms shown, intensity of services needed, and/or the medical risk in this patient being treated as an outpatient. - . Bed Request Type: Intensive Care Admitting Physician: Sola Jimenez
[2017-01-06] MEDS ORDERED: Sodium Chloride 3% for Inhalation 4 ML VIAL.NEB IH SCH (09:00)
[2017-01-06] MEDS ORDERED: HYDROXYTRYPTOPHAN PO SCH (09:00)
[2017-01-06] MEDS ORDERED: TESTOSTERONE APPL TOP SCH (09:00)
[2017-01-06] MEDS: Emtricitabine-Tenofovir 200 mg-300 mg Tab PO SCH (09:37)
[2017-01-06] MEDS: Multivitamin With Minerals Tab PO SCH (09:37)
[2017-01-06] MEDS: Azithromycin 500 MG in Sodium Chloride 0.9% 250 ML IVPB SCH (09:41)
--- NOTE | 2017-01-06 10:34 | RAD ---
PROCEDURE: CHEST RADIOGRAPH, 1 VIEW HISTORY: pneumonia COMPARISON: Comparison made with chest radiograph 01/05/2017 FINDINGS: LUNGS: Slightly improved previously noted right-sided infiltrate (probably within the right middle lobe) PLEURA: No pneumothorax or pleural fluid seen. CARDIOVASCULAR: Normal. OSSEOUS STRUCTURES: No significant abnormalities. VISUALIZED UPPER ABDOMEN: Normal. OTHER FINDINGS: None. IMPRESSION: Slightly improved patchy infiltrate as above.
--- NOTE | 2017-01-06 11:11 | CP.CCUPN ---
CCU Subjective - Physician Review Subjective (Free Text): Patient now placed into resp isolation to r/o Pulm TB disease due to overnight hemoptysis. He remains awake, alert and nondistressed, no hypoxemic episodes nor any increase in FiO2 requirements. He denies any CP, SOB, nausea, palpitations, dizziness, His is now in sinus rhythm at 84/min. He did not require a continuous infusion of Cardizem. Other vitals and I/O's reviewed. ROS: No other pertinent negs or positives on 10+ system review. PMSFH: All other Nursing and physician documentation reviewed to date; no new pertinent info noted relevant to current medical problems. Denies ETOH/ Tobacco use. MAJOR PROBLEMS: 1. Acute resp insufficiency 2 RLL Pneumonia without Severe Sepsis or bacteremia 2. New onset / Paroxysmal A Flutter-Fib with RVR, converted to NSR. 3. Hyponatremia / Hypophosphatemia 4. 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 Testosterone / Androgen therapy Dependency 6. HIV Disease 7. Major Depression PLAN: 1. Empiric abx coverage started. W/u for CAP and atypical organism infection, including Legionella. No further need to continue Solumedrol. 2. Consider PPD / Quantiferon testing: sputum cx for AFB already ordered. 3. ECHO 4. CT Chest. Hemoptysis exacerbated bi warfarin-induced coagulopathy. No need for active correction of INR unless ongoing active bleeding evident. HGb levels are at expected levels. 5. HIV status with viral load and T cell studies. 6. Serum Na levels normalized after initial fluid challenges with NSS. 7. No need for assisted breathing support. Could be managed further on Telemetry unit and move to ICU if he fails to respond to current abxs or needs MV support. CCU Objective - Vital Signs / Intake & Output Vital Signs (Last 4 hours): Vital Signs Temp Pulse Resp BP Pulse Ox 01/06/17 08:00 97.9 F 84 33 H 138/77 98 Intake and Output (Last 8hrs): Intake & Output 01/05/17 01/06/17 01/06/17 22:59 06:59 14:59 Intake Total 750 Output Total 400 400 Balance 350 -400 Intake: IV 10 Oral 740 Output: Urine 400 400 Urine, Voided 400 400 - Physical Exam Head: Positive for: Abrasion Pupils: Positive for: PERRL Extroacular Muscles: Positive for: EOMI Conjunctiva: Positive for: Normal Mouth: Positive for: Moist Mucous Membranes, Normal Tounge Pharnyx: Positive for: Normal Neck: Negative for: JVD, Lymphadenopathy Respiratory/Chest: Positive for: Decreased Breath Sounds (R base), Rhonchi. Negative for: Accessory Muscle Use, Wheezes Cardiovascular: Positive for: Irregular Rhythm, Tachycardic. Negative for: Murmurs, Rub Abdomen: Positive for: Normal Bowel Sounds. Negative for: Tenderness, Distention Lower Extremity: Positive for: Normal Inspection. Negative for: Edema, CALF TENDERNESS, NORMAL PULSES Neurological: Positive for: GCS=15, Speech Normal, Motor Func Grossly Intact, Normal Sensory Function Skin: Positive for: Warm. Negative for: Rashes Psychiatric: Positive for: Alert, Oriented x 3, Normal Concentration, Normal Affect - Medications Active Medications: Active Medications Generic Name Dose Route Start Last Admin Trade Name Freq PRN Reason Stop Dose Admin Acetaminophen 650 mg 01/05/17 15:06 Tylenol 325mg Tab PO Q6H PRN Fever >100.4 F Acetaminophen/Codeine Phosphate 1 tab 01/05/17 14:55 Tylenol/Codeine 300 Mg/30 Mg PO Q4H PRN Pain, severe (8-10) Atorvastatin Calcium 20 mg 01/05/17 22:00 01/05/17 21:33 Lipitor PO 20 mg HS HARMONY Administration Emtricitabine/Tenofovir 1 tab 01/06/17 09:00 01/06/17 09:37 Truvada 200 Mg-300 Mg PO 1 tab DAILY HARMONY Administration Finasteride 5 mg 01/06/17 09:00 01/06/17 09:37 Proscar PO 5 mg DAILY HARMONY Administration Gabapentin 300 mg 01/05/17 17:00 01/06/17 09:46 Neurontin PO 300 mg TID HARMONY Administration Home Med 1 cap 01/06/17 09:00 5-Hydroxytryptophan (5-Htp) [5-Htp] PO DAILY HARMONY Home Med 300 mg 01/06/17 09:00 01/06/17 09:37 Bupropion Xl [Wellbutrin Xl] PO 300 mg DAILY HARMONY Administration Home Med 1 appl 01/06/17 09:00 Testosterone [Androgel] TOP DAILY HARMONY Home Med 500 mg 01/06/17 09:00 09/22/17 09:38 Valacyclovir Hcl [Valacyclovir] PO 500 mg DAILY HARMONY Administration Azithromycin 500 mg/ Sodium 250 mls @ 250 mls/hr 01/06/17 09:00 01/06/17 09: 41 Chloride IVPB 250 mls/hr DAILY HARMONY Administration Ceftriaxone Sodium 1 gm/ 100 mls @ 100 mls/hr 01/06/17 09:00 01/06/17 09:40 Sodium Chloride IVPB 100 mls/hr DAILY HARMONY Administration Influenza Virus Vaccine 0.5 ml 01/07/17 21:00 Afluria (Pf)(18yr & Older) IM 01/07/17 21:01 .ONCE ONE Multivitamins/Minerals 1 tab 01/06/17 09:00 01/06/17 09:37 Therapeutic-M Tab PO 1 tab DAILY HARMONY Administration Nevirapine 200 mg 01/05/17 17:00 01/05/17 23:07 Viramune PO Not Given BID HARMONY Oxandrolone 10 mg 01/05/17 17:00 01/05/17 21:32 Oxandrin PO 10 mg BID HARMONY Administration Pneumococcal Polyvalent Vaccine 0.5 ml 01/06/17 21:00 Pneumovax 23 Vaccine IM 01/06/17 21:01 .ONCE ONE Tamsulosin HCl 0.4 mg 01/06/17 09:00 01/06/17 09:46 Flomax PO 0.4 mg DAILY HARMONY Administration Trazodone HCl 100 mg 01/05/17 22:00 01/05/17 21:33 Desyrel PO 100 mg HS HARMONY Administration - Patient Studies Lab Studies: Lab Studies 01/06/17 01/06/17 01/06/17 Range/Units 04:30 04:30 04:30 WBC 12.5 H (4.8-10.8) K/uL RBC 4.92 (4.40-5.90) Mil/uL Hgb 14.2 (12.0-18.0) g/dL Hct 43.9 (35.0-51.0) % MCV 89.1 (80.0-94.0) fl MCH 28.8 (27.0-31.0) pg MCHC 32.3 L (33.0-37.0) g/dL RDW 17.6 H (11.5-14.5) % Plt Count 184 (130-400) K/uL MPV (7.2-11.7) fl Neut % (Auto) (50.0-75.0) % Lymph % (Auto) (20.0-40.0) % [place] % (Auto) (0.0-10.0) % Eos % (Auto) (0.0-4.0) % Baso % (Auto) (0.0-2.0) % Neut # (1.8-7.0) K/uL Lymph # (1.0-4.3) K/uL [place] # (0.0-0.8) K/uL Eos # (0.0-0.7) K/uL Baso # (0.0-0.2) K/uL Neutrophils % (Manual) (42-75) % Lymphocytes % (Manual) (20-50) % Monocytes % (Manual) (0-10) % Platelet Estimate (NORMAL) Anisocytosis (manual) PT 67.8 H* D (9.8-13.1) Seconds INR 6.3 H D (0.9-1.2) APTT 46.1 H (25.6-37.1) Seconds pCO2 (35-45) mm/Hg pO2 (80-100) mm/Hg HCO3 (21-28) mmol/L ABG pH (7.35-7.45) ABG Total CO2 (22-28) mmol/L ABG O2 Saturation (95-98) % ABG Base Excess (-2.0-3.0) mmol/L Reji Test ABG Potassium (3.6-5.2) mmol/L A-a O2 Difference mm/Hg Glucose (75-110) mg/dL Lactate (0.7-2.1) mmol/L FiO2 % Sodium 139 (132-148) mmol/l Potassium 4.2 (3.6-5.0) MMOL/L Chloride 108 H (98-107) mmol/L Carbon Dioxide 24 (22-30) mmol/L Anion Gap 11 (10-20) BUN 13 (9-20) mg/dl Creatinine 0.9 (0.8-1.5) mg/dL Est GFR ( Amer) > 60 Est GFR (Non-Af Amer) > 60 Random Glucose 139 H (75-110) mg/dL Calcium 8.4 (8.4-10.2) mg/dL Phosphorus 2.0 L (2.5-4.5) mg/dl Magnesium 2.4 H (1.6-2.3) MG/DL Total Bilirubin 0.6 (0.2-1.3) mg/dl AST 31 (17-59) U/L ALT 53 (21-72) U/L Alkaline Phosphatase 63 (38-126) U/L Troponin I (0.00-0.120) ng/mL NT-Pro-B Natriuret Pep (0-900) pg/ml Total Protein 5.8 L (6.3-8.2) G/DL Albumin 3.0 L (3.5-5.0) g/dL Globulin 2.8 (2.2-3.9) gm/dL Albumin/Globulin Ratio 1.1 (1.0-2.1) Arterial Blood Potassium (3.6-5.2) mmol/L Urine Color (YELLOW) Urine Clarity (Clear) Urine pH (5.0-8.0) Ur Specific Guys (1.003-1.030) Urine Protein (NEGATIVE) mg/dL Urine Glucose (UA) (Normal) mg/dL Urine Ketones (NEGATIVE) mg/dL Urine Blood (NEGATIVE) Urine Nitrate (NEGATIVE) Urine Bilirubin (NEGATIVE) Urine Urobilinogen (0.2-1.0) mg/dL Ur Leukocyte Esterase (Negative) Aure/uL Urine RBC (Auto) (0-3) /hpf Urine Microscopic WBC (0-5) /hpf Urine Bacteria (<OCC) Influenza Typ A,B (EIA) (NEGATIVE) 01/05/17 01/05/17 01/05/17 Range/Units 15:43 13:53 13:40 WBC (4.8-10.8) K/uL RBC (4.40-5.90) Mil/uL Hgb (12.0-18.0) g/dL Hct (35.0-51.0) % MCV (80.0-94.0) fl MCH (27.0-31.0) pg MCHC (33.0-37.0) g/dL RDW (11.5-14.5) % Plt Count (130-400) K/uL MPV (7.2-11.7) fl Neut % (Auto) (50.0-75.0) % Lymph % (Auto) (20.0-40.0) % [place] % (Auto) (0.0-10.0) % Eos % (Auto) (0.0-4.0) % Baso % (Auto) (0.0-2.0) % Neut # (1.8-7.0) K/uL Lymph # (1.0-4.3) K/uL [place] # (0.0-0.8) K/uL Eos # (0.0-0.7) K/uL Baso # (0.0-0.2) K/uL Neutrophils % (Manual) (42-75) % Lymphocytes % (Manual) (20-50) % Monocytes % (Manual) (0-10) % Platelet Estimate (NORMAL) Anisocytosis (manual) PT (9.8-13.1) Seconds INR (0.9-1.2) APTT (25.6-37.1) Seconds pCO2 29 L (35-45) mm/Hg pO2 67 L (80-100) mm/Hg HCO3 25.2 (21-28) mmol/L ABG pH 7.50 H (7.35-7.45) ABG Total CO2 23.5 (22-28) mmol/L ABG O2 Saturation 97.2 (95-98) % ABG Base Excess 0.6 (-2.0-3.0) mmol/L Reji Test Yes ABG Potassium 3.9 (3.6-5.2) mmol/L A-a O2 Difference 46.0 mm/Hg Glucose 112 H (75-110) mg/dL Lactate 1.1 (0.7-2.1) mmol/L FiO2 21.0 % Sodium 129.0 L (132-148) mmol/l Potassium (3.6-5.0) MMOL/L Chloride 99.0 (98-107) mmol/L Carbon Dioxide (22-30) mmol/L Anion Gap (10-20) BUN (9-20) mg/dl Creatinine (0.8-1.5) mg/dL Est GFR ( Amer) Est GFR (Non-Af Amer) Random Glucose (75-110) mg/dL Calcium (8.4-10.2) mg/dL Phosphorus (2.5-4.5) mg/dl Magnesium (1.6-2.3) MG/DL Total Bilirubin (0.2-1.3) mg/dl AST (17-59) U/L ALT (21-72) U/L Alkaline Phosphatase (38-126) U/L Troponin I (0.00-0.120) ng/mL NT-Pro-B Natriuret Pep (0-900) pg/ml Total Protein (6.3-8.2) G/DL Albumin (3.5-5.0) g/dL Globulin (2.2-3.9) gm/dL Albumin/Globulin Ratio (1.0-2.1) Arterial Blood Potassium 3.9 (3.6-5.2) mmol/L Urine Color Yellow (YELLOW) Urine Clarity Slighty-cloudy (Clear) Urine pH 6.0 (5.0-8.0) Ur Specific Guys 1.012 (1.003-1.030) Urine Protein 30 (NEGATIVE) mg/dL Urine Glucose (UA) Neg (Normal) mg/dL Urine Ketones Negative (NEGATIVE) mg/dL Urine Blood Small (NEGATIVE) Urine Nitrate Negative (NEGATIVE) Urine Bilirubin Negative (NEGATIVE) Urine Urobilinogen 4.0 (0.2-1.0) mg/dL Ur Leukocyte Esterase Neg (Negative) Aure/uL Urine RBC (Auto) 6 H (0-3) /hpf Urine Microscopic WBC 1 (0-5) /hpf Urine Bacteria Rare (<OCC) Influenza Typ A,B (EIA) Negative for flu a/b (NEGATIVE) 01/05/17 01/05/17 01/05/17 Range/Units 13:40 13:40 13:40 WBC 16.7 H D (4.8-10.8) K/uL RBC 5.32 (4.40-5.90) Mil/uL Hgb 15.3 (12.0-18.0) g/dL Hct 46.5 (35.0-51.0) % MCV 87.6 D (80.0-94.0) fl MCH 28.7 (27.0-31.0) pg MCHC 32.8 L (33.0-37.0) g/dL RDW 17.0 H (11.5-14.5) % Plt Count 178 (130-400) K/uL MPV 7.9 (7.2-11.7) fl Neut % (Auto) 90.0 H (50.0-75.0) % Lymph % (Auto) 4.4 L (20.0-40.0) % [place] % (Auto) 5.5 (0.0-10.0) % Eos % (Auto) 0.0 (0.0-4.0) % Baso % (Auto) 0.1 (0.0-2.0) % Neut # 15.0 H (1.8-7.0) K/uL Lymph # 0.7 L (1.0-4.3) K/uL [place] # 0.9 H (0.0-0.8) K/uL Eos # 0.0 (0.0-0.7) K/uL Baso # 0.0 (0.0-0.2) K/uL Neutrophils % (Manual) 86 H (42-75) % Lymphocytes % (Manual) 5 L (20-50) % Monocytes % (Manual) 9 (0-10) % Platelet Estimate Normal (NORMAL) Anisocytosis (manual) Slight PT 78.8 H* (9.8-13.1) Seconds INR 7.4 H (0.9-1.2) APTT 50.7 H (25.6-37.1) Seconds pCO2 (35-45) mm/Hg pO2 (80-100) mm/Hg HCO3 (21-28) mmol/L ABG pH (7.35-7.45) ABG Total CO2 (22-28) mmol/L ABG O2 Saturation (95-98) % ABG Base Excess (-2.0-3.0) mmol/L Reji Test ABG Potassium (3.6-5.2) mmol/L A-a O2 Difference mm/Hg Glucose (75-110) mg/dL Lactate (0.7-2.1) mmol/L FiO2 % Sodium 130 L (132-148) mmol/l Potassium 4.3 (3.6-5.0) MMOL/L Chloride 100 (98-107) mmol/L Carbon Dioxide 22 (22-30) mmol/L Anion Gap 12 (10-20) BUN 13 (9-20) mg/dl Creatinine 1.1 (0.8-1.5) mg/dL Est GFR ( Amer) > 60 Est GFR (Non-Af Amer) > 60 Random Glucose 108 (75-110) mg/dL Calcium 8.2 L (8.4-10.2) mg/dL Phosphorus 2.0 L (2.5-4.5) mg/dl Magnesium 2.0 (1.6-2.3) MG/DL Total Bilirubin 1.0 (0.2-1.3) mg/dl AST 30 (17-59) U/L ALT 44 (21-72) U/L Alkaline Phosphatase 87 (38-126) U/L Troponin I < 0.0120 (0.00-0.120) ng/mL NT-Pro-B Natriuret Pep 940 H (0-900) pg/ml Total Protein 6.2 L (6.3-8.2) G/DL Albumin 3.3 L (3.5-5.0) g/dL Globulin 2.9 (2.2-3.9) gm/dL Albumin/Globulin Ratio 1.1 (1.0-2.1) Arterial Blood Potassium (3.6-5.2) mmol/L Urine Color (YELLOW) Urine Clarity (Clear) Urine pH (5.0-8.0) Ur Specific Guys (1.003-1.030) Urine Protein (NEGATIVE) mg/dL Urine Glucose (UA) (Normal) mg/dL Urine Ketones (NEGATIVE) mg/dL Urine Blood (NEGATIVE) Urine Nitrate (NEGATIVE) Urine Bilirubin (NEGATIVE) Urine Urobilinogen (0.2-1.0) mg/dL Ur Leukocyte Esterase (Negative) Aure/uL Urine RBC (Auto) (0-3) /hpf Urine Microscopic WBC (0-5) /hpf Urine Bacteria (<OCC) Influenza Typ A,B (EIA) (NEGATIVE) Laboratory Results - last 24 hr 01/05/17 01/05/17 01/05/17 13:40 13:40 13:40 WBC 16.7 H D RBC 5.32 Hgb 15.3 Hct 46.5 MCV 87.6 D MCH 28.7 MCHC 32.8 L RDW 17.0 H Plt Count 178 MPV 7.9 Neut % (Auto) 90.0 H Lymph % (Auto) 4.4 L [place] % (Auto) 5.5 Eos % (Auto) 0.0 Baso % (Auto) 0.1 Neut # 15.0 H Lymph # 0.7 L [place] # 0.9 H Eos # 0.0 Baso # 0.0 Neutrophils % (Manual) 86 H Lymphocytes % (Manual) 5 L Monocytes % (Manual) 9 Platelet Estimate Normal Anisocytosis (manual) Slight PT 78.8 H* INR 7.4 H APTT 50.7 H pCO2 pO2 HCO3 ABG pH ABG Total CO2 ABG O2 Saturation ABG Base Excess Reji Test ABG Potassium A-a O2 Difference Glucose Lactate FiO2 Sodium 130 L Potassium 4.3 Chloride 100 Carbon Dioxide 22 Anion Gap 12 BUN 13 Creatinine 1.1 Est GFR ( Amer) > 60 Est GFR (Non-Af Amer) > 60 Random Glucose 108 Calcium 8.2 L Phosphorus 2.0 L Magnesium 2.0 Total Bilirubin 1.0 AST 30 ALT 44 Alkaline Phosphatase 87 Troponin I < 0.0120 NT-Pro-B Natriuret Pep 940 H Total Protein 6.2 L Albumin 3.3 L Globulin 2.9 Albumin/Globulin Ratio 1.1 Arterial Blood Potassium Urine Color Urine Clarity Urine pH Ur Specific Guys Urine Protein Urine Glucose (UA) Urine Ketones Urine Blood Urine Nitrate Urine Bilirubin Urine Urobilinogen Ur Leukocyte Esterase Urine RBC (Auto) Urine Microscopic WBC Urine Bacteria Influenza Typ A,B (EIA) 01/05/17 01/05/17 01/05/17 13:40 13:53 15:43 WBC RBC Hgb Hct MCV MCH MCHC RDW Plt Count MPV Neut % (Auto) Lymph % (Auto) [place] % (Auto) Eos % (Auto) Baso % (Auto) Neut # Lymph # [place] # Eos # Baso # Neutrophils % (Manual) Lymphocytes % (Manual) Monocytes % (Manual) Platelet Estimate Anisocytosis (manual) PT INR APTT pCO2 29 L pO2 67 L HCO3 25.2 ABG pH 7.50 H ABG Total CO2 23.5 ABG O2 Saturation 97.2 ABG Base Excess 0.6 Reji Test Yes ABG Potassium 3.9 A-a O2 Difference 46.0 Glucose 112 H Lactate 1.1 FiO2 21.0 Sodium 129.0 L Potassium Chloride 99.0 Carbon Dioxide Anion Gap BUN Creatinine Est GFR ( Amer) Est GFR (Non-Af Amer) Random Glucose Calcium Phosphorus Magnesium Total Bilirubin AST ALT Alkaline Phosphatase Troponin I NT-Pro-B Natriuret Pep Total Protein Albumin Globulin Albumin/Globulin Ratio Arterial Blood Potassium 3.9 Urine Color Yellow Urine Clarity Slighty-cloudy Urine pH 6.0 Ur Specific Guys 1.012 Urine Protein 30 Urine Glucose (UA) Neg Urine Ketones Negative Urine Blood Small Urine Nitrate Negative Urine Bilirubin Negative Urine Urobilinogen 4.0 Ur Leukocyte Esterase Neg Urine RBC (Auto) 6 H Urine Microscopic WBC 1 Urine Bacteria Rare Influenza Typ A,B (EIA) Negative for flu a/b 01/06/17 01/06/17 01/06/17 04:30 04:30 04:30 WBC 12.5 H RBC 4.92 Hgb 14.2 Hct 43.9 MCV 89.1 MCH 28.8 MCHC 32.3 L RDW 17.6 H Plt Count 184 MPV Neut % (Auto) Lymph % (Auto) [place] % (Auto) Eos % (Auto) Baso % (Auto) Neut # Lymph # [place] # Eos # Baso # Neutrophils % (Manual) Lymphocytes % (Manual) Monocytes % (Manual) Platelet Estimate Anisocytosis (manual) PT 67.8 H* D INR 6.3 H D APTT 46.1 H pCO2 pO2 HCO3 ABG pH ABG Total CO2 ABG O2 Saturation ABG Base Excess Reji Test ABG Potassium A-a O2 Difference Glucose Lactate FiO2 Sodium 139 Potassium 4.2 Chloride 108 H Carbon Dioxide 24 Anion Gap 11 BUN 13 Creatinine 0.9 Est GFR ( Amer) > 60 Est GFR (Non-Af Amer) > 60 Random Glucose 139 H Calcium 8.4 Phosphorus 2.0 L Magnesium 2.4 H Total Bilirubin 0.6 AST 31 ALT 53 Alkaline Phosphatase 63 Troponin I NT-Pro-B Natriuret Pep Total Protein 5.8 L Albumin 3.0 L Globulin 2.8 Albumin/Globulin Ratio 1.1 Arterial Blood Potassium Urine Color Urine Clarity Urine pH Ur Specific Guys Urine Protein Urine Glucose (UA) Urine Ketones Urine Blood Urine Nitrate Urine Bilirubin Urine Urobilinogen Ur Leukocyte Esterase Urine RBC (Auto) Urine Microscopic WBC Urine Bacteria Influenza Typ A,B (EIA) Review of Systems - Review of Systems All systems: reviewed and no additional remarkable complaints except (as abve)
--- NOTE | 2017-01-06 13:18 | CP.PCM.CON ---
History of Present Illness - History of Present Illness History of Present Illness: 56M admitted for SOB, fevers/chills/sweats, Right upper back pain, and tachycardia, found to be in A flutter which changed into A Fib with fluid challenge, CXR done on admission showed RLL infiltrate. 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 Review of Systems - Review of Systems All systems: reviewed and no additional remarkable complaints except - Constitutional Constitutional: As Per HPI, Chills, Fever - EENT Eyes: absent: As Per HPI, Blind Spots, Blurred Vision, Change in Vision, Decreased Night Vision, Diplopia, Discharge, Dry Eye, Exophthalmos, Floaters, Irritation, Itchy Eyes, Loss of Peripheral Vision, Pain, Photophobia, Requires Corrective Lenses, Sees Flashes, Spots in Vision, Tunnel Vision, Other Visual Disturbances, Loss of Vision, Other Ears: absent: As Per HPI, Decreased Hearing, Ear Discharge, Ear Pain, Tinnitus, Abnormal Hearing, Disequilibrium, Dizziness, Other Nose/Mouth/Throat: absent: As Per HPI, Epistaxis, Nasal Congestion, Nasal Discharge, Nasal Obstruction, Nasal Trauma, Nose Pain, Post Nasal Drip, Sinus Pain, Sinus Pressure, Bleeding Gums, Change in Voice, Dental Pain, Dry Mouth, Dysphagia, Halitosis, Hoarsness, Lip Swelling, Mouth Lesions, Mouth Pain, Odynophagia, Sore Throat, Throat Swelling, Tongue Swelling, Facial Pain, Neck Pain, Neck Mass, Other - Cardiovascular Cardiovascular: As Per HPI - Respiratory Respiratory: As Per HPI, Cough, Dyspnea, Hemoptysis - Gastrointestinal Gastrointestinal: absent: As Per HPI, Abdominal Pain, Belching, Bloating, Change in Bowel Habits, Change in Stool Character, Coffee Ground Emesis, Constipation, Cramping, Diarrhea, Dyspepsia, Dysphagia, Early Satiety, Excessive Flatus, Fecal Incontinence, Heartburn, Hematemesis, Hematochezia, Loose Stools, Melena, Nausea, Odynophagia, Temesmus, Vomiting, Other - Genitourinary Genitourinary: absent: As Per HPI, Change in Urinary Stream, Difficulty Urinating, Dysuria, Flank Pain, Hematuria, Pyuria, Nocturia, Urinary Incontinence, Urinary Frequency, Urinary Hesitance, Urinary Urgency, Voiding Freq/Small Amts, Freq UTI, Hx Renal/Bladder Calculi, Hx /Renal Surgery, Bladder Distension, Other - Musculoskeletal Musculoskeletal: absent: As Per HPI, Abnormal Gait, Arthralgias, Atrophy, Back Pain, Deformity, Joint Swelling, Limited Range of Motion, Loss of Height, Muscle Cramps, Muscle Weakness, Myalgias, Neck Pain, Numbness, Radiating Pain into Limb, Stiffness, Tingling, Other - Integumentary Integumentary: absent: As Per HPI, Acne, Alopecia, Bleeding Lesions, Change in Hair, Change in Nails, Change in Pigmentation, Changing Lesions, Dry Skin, Erythema, Furuncle, Hirsutism, Lesions, New Lesions, Non-Healing Lesions, Photosensitivity, Pruritus, Rash, Skin Pain, Skin Ulcer, Sores, Striae, Swelling , Unusual Bruising, Wounds, Jaundice, Other - Neurological Neurological: absent: As Per HPI, Abnormal Gait, Abnormal Hearing, Abnormal Movements, Abnormal Speech, Behavioral Changes, Burning Sensations, Confusion, Convulsions, Disequilibrium, Dizziness, Numbness, Focal Weakness, Frequent Falls , Headaches, Lack of Coordination, Loss of Vision, Memory Loss, Paresthesias, Radicular Pain, Restless Legs, Sensory Deficit, Syncope, Tingling, Tremor, Vertigo, Weakness, Other Visual Disturbances, Other - Psychiatric Psychiatric: absent: As Per HPI, Abnormal Sleep Pattern, Anhedonia, Anxiety, Auditory Hallucinations, Behavioral Changes, Change in Appetite, Change in Libido, Confusion, Depression, Difficulty Concentrating, Hallucinations, Homicidal Ideation, Hopelessness, Irritability, Memory Loss, Mood Swings, Panic Attacks, Paranoia, Suicidal Ideation, Visual Hallucinations, Tactile Hallucinations, Other - Endocrine Endocrine: absent: As Per HPI, Change in Body Appearance, Change in Libido, Cold Intolorance, Deepening of Voice, Excessive Sweating, Fatigue, Flushing, Heat Intolorance, Increase in Ring/Shoe/Hat Size, Palpitations, Polydipsia, Polyphagia, Polyuria, Other - Hematologic/Lymphatic Hematologic: As Per HPI Past Patient History - Past Medical History & Family History Past Medical History?: Yes - Past Social History Smoking Status: Never Smoked - CARDIAC Hx Hypercholesterolemia: Yes - PULMONARY Hx Pneumonia: Yes - HEMATOLOGICAL/ONCOLOGICAL Hx AIDS: No Hx Human Immunodeficiency Virus (HIV): No - MUSCULOSKELETAL/RHEUMATOLOGICAL Hx Falls: No - PSYCHIATRIC Hx Substance Use: No - SURGICAL HISTORY Hx Appendectomy: Yes - ANESTHESIA Hx Anesthesia: Yes Hx Anesthesia Reactions: No Meds Allergies/Adverse Reactions: Allergies Allergy/AdvReac Type Severity Reaction Status Date / Time No Known Allergies Allergy Verified 11/19/14 12:59 - Medications Medications: Current Medications Acetaminophen (Tylenol 325mg Tab) 650 mg PO Q6H PRN PRN Reason: Fever >100.4 F Acetaminophen/Codeine Phosphate (Tylenol/Codeine 300 Mg/30 Mg) 1 tab PO Q4H PRN PRN Reason: Pain, severe (8-10) Atorvastatin Calcium (Lipitor) 20 mg PO HS [facility] Last Admin: 01/05/17 21:33 Dose: 20 mg Emtricitabine/Tenofovir (Truvada 200 Mg-300 Mg) 1 tab PO DAILY [facility] Last Admin: 01/06/17 09:37 Dose: 1 tab Finasteride (Proscar) 5 mg PO DAILY [facility] Last Admin: 01/06/17 09:37 Dose: 5 mg Gabapentin (Neurontin) 300 mg PO TID [facility] Last Admin: 01/06/17 09:46 Dose: 300 mg Home Med (5-Hydroxytryptophan (5-Htp) [5-Htp]) 1 cap PO DAILY [facility] Home Med (Bupropion Xl [Wellbutrin Xl]) 300 mg PO DAILY [facility] Last Admin: 01/06/17 09:37 Dose: 300 mg Home Med (Testosterone [Androgel]) 1 appl TOP DAILY [facility] Home Med (Valacyclovir Hcl [Valacyclovir]) 500 mg PO DAILY [facility] Last Admin: 01/06/17 09:38 Dose: 500 mg Azithromycin 500 mg/ Sodium (Chloride) 250 mls @ 250 mls/hr IVPB DAILY [facility] Last Admin: 01/06/17 09:41 Dose: 250 mls/hr Ceftriaxone Sodium 1 gm/ (Sodium Chloride) 100 mls @ 100 mls/hr IVPB DAILY [facility] Last Admin: 01/06/17 09:40 Dose: 100 mls/hr Influenza Virus Vaccine (Afluria (Pf)(18yr & Older)) 0.5 ml IM .ONCE ONE Stop: 01/07/17 21:01 Multivitamins/Minerals (Therapeutic-M Tab) 1 tab PO DAILY [facility] Last Admin: 01/06/17 09:37 Dose: 1 tab Nevirapine (Viramune) 200 mg PO BID [facility] Last Admin: 01/06/17 11:07 Dose: 200 mg Oxandrolone (Oxandrin) 10 mg PO BID [facility] Last Admin: 01/06/17 11:06 Dose: 10 mg Pneumococcal Polyvalent Vaccine (Pneumovax 23 Vaccine) 0.5 ml IM .ONCE ONE Stop: 01/06/17 21:01 Tamsulosin HCl (Flomax) 0.4 mg PO DAILY [facility] Last Admin: 01/06/17 09:46 Dose: 0.4 mg Trazodone HCl (Desyrel) 100 mg PO HS [facility] Last Admin: 01/05/17 21:33 Dose: 100 mg Physical Exam - Constitutional Appears: Non-toxic, Chronically Ill - Head Exam Head Exam: ATRAUMATIC, NORMAL INSPECTION, NORMOCEPHALIC - Eye Exam Eye Exam: EOMI, PERRL. absent: Scleral icterus - ENT Exam ENT Exam: Mucous Membranes Dry, Normal External Ear Exam - Neck Exam Neck exam: Negative for: Lymphadenopathy - Respiratory Exam Respiratory Exam: Decreased Breath Sounds, Rhonchi - Cardiovascular Exam Cardiovascular Exam: REGULAR RHYTHM, +S1, +S2 - GI/Abdominal Exam GI & Abdominal Exam: Diminished Bowel Sounds, Soft. absent: Tenderness - Rectal Exam Rectal Exam: Deferred - Exam Exam: NORMAL INSPECTION - Extremities Exam Extremities exam: Positive for: pedal pulses present. Negative for: calf tenderness, pedal edema, tenderness - Back Exam Back exam: absent: CVA tenderness (L), CVA tenderness (R) - Neurological Exam Neurological exam: Alert, CN II-XII Intact, Oriented x3, Reflexes Normal - Psychiatric Exam Psychiatric exam: Normal Mood - Skin Skin Exam: Dry, Intact Results - Vital Signs Recent Vital Signs: Last Vital Signs Temp 97.4 F L 01/06/17 12:00 Pulse 86 01/06/17 12:00 Resp 15 01/06/17 12:00 BP 143/77 01/06/17 12:00 Pulse Ox 97 01/06/17 12:00 - Labs Result Diagrams: 01/06/17 04:30 01/06/17 04:30 Labs: Laboratory Results - last 24 hr 01/05/17 01/05/17 01/05/17 07:51 13:40 13:40 WBC 16.7 H D RBC 5.32 Hgb 15.3 Hct 46.5 MCV 87.6 D MCH 28.7 MCHC 32.8 L RDW 17.0 H Plt Count 178 MPV 7.9 Neut % (Auto) 90.0 H Lymph % (Auto) 4.4 L Sully % (Auto) 5.5 Eos % (Auto) 0.0 Baso % (Auto) 0.1 Neut # 15.0 H Lymph # 0.7 L Sully # 0.9 H Eos # 0.0 Baso # 0.0 Neutrophils % (Manual) 86 H Lymphocytes % (Manual) 5 L Monocytes % (Manual) 9 Platelet Estimate Normal Anisocytosis (manual) Slight PT INR APTT pCO2 pO2 HCO3 ABG pH ABG Total CO2 ABG O2 Saturation ABG Base Excess Reji Test ABG Potassium A-a O2 Difference Glucose Lactate FiO2 Sodium 130 L Potassium 4.3 Chloride 100 Carbon Dioxide 22 Anion Gap 12 BUN 13 Creatinine 1.1 Est GFR ( Amer) > 60 Est GFR (Non-Af Amer) > 60 Random Glucose 108 Calcium 8.2 L Phosphorus 2.0 L Magnesium 2.0 Total Bilirubin 1.0 AST 30 ALT 44 Alkaline Phosphatase 87 Troponin I < 0.0120 NT-Pro-B Natriuret Pep 940 H Total Protein 6.2 L Albumin 3.3 L Globulin 2.9 Albumin/Globulin Ratio 1.1 Arterial Blood Potassium Urine Color Urine Clarity Urine pH Ur Specific Casper Urine Protein Urine Glucose (UA) Urine Ketones Urine Blood Urine Nitrate Urine Bilirubin Urine Urobilinogen Ur Leukocyte Esterase Urine RBC (Auto) Urine Microscopic WBC Urine Bacteria Influenza Typ A,B (EIA) Ur L.pneumophila Ag Negative 01/05/17 01/05/17 01/05/17 13:40 13:40 13:53 WBC RBC Hgb Hct MCV MCH MCHC RDW Plt Count MPV Neut % (Auto) Lymph % (Auto) Sully % (Auto) Eos % (Auto) Baso % (Auto) Neut # Lymph # Sully # Eos # Baso # Neutrophils % (Manual) Lymphocytes % (Manual) Monocytes % (Manual) Platelet Estimate Anisocytosis (manual) PT 78.8 H* INR 7.4 H APTT 50.7 H pCO2 29 L pO2 67 L HCO3 25.2 ABG pH 7.50 H ABG Total CO2 23.5 ABG O2 Saturation 97.2 ABG Base Excess 0.6 Reji Test Yes ABG Potassium 3.9 A-a O2 Difference 46.0 Glucose 112 H Lactate 1.1 FiO2 21.0 Sodium 129.0 L Potassium Chloride 99.0 Carbon Dioxide Anion Gap BUN Creatinine Est GFR ( Amer) Est GFR (Non-Af Amer) Random Glucose Calcium Phosphorus Magnesium Total Bilirubin AST ALT Alkaline Phosphatase Troponin I NT-Pro-B Natriuret Pep Total Protein Albumin Globulin Albumin/Globulin Ratio Arterial Blood Potassium 3.9 Urine Color Urine Clarity Urine pH Ur Specific [place] Urine Protein Urine Glucose (UA) Urine Ketones Urine Blood Urine Nitrate Urine Bilirubin Urine Urobilinogen Ur Leukocyte Esterase Urine RBC (Auto) Urine Microscopic WBC Urine Bacteria Influenza Typ A,B (EIA) Negative for flu a/b Ur L.pneumophila Ag 01/05/17 01/06/17 01/06/17 15:43 04:30 04:30 WBC 12.5 H RBC 4.92 Hgb 14.2 Hct 43.9 MCV 89.1 MCH 28.8 MCHC 32.3 L RDW 17.6 H Plt Count 184 MPV Neut % (Auto) Lymph % (Auto) Sully % (Auto) Eos % (Auto) Baso % (Auto) Neut # Lymph # Sully # Eos # Baso # Neutrophils % (Manual) Lymphocytes % (Manual) Monocytes % (Manual) Platelet Estimate Anisocytosis (manual) PT 67.8 H* D INR 6.3 H D APTT 46.1 H pCO2 pO2 HCO3 ABG pH ABG Total CO2 ABG O2 Saturation ABG Base Excess Reji Test ABG Potassium A-a O2 Difference Glucose Lactate FiO2 Sodium Potassium Chloride Carbon Dioxide Anion Gap BUN Creatinine Est GFR ( Amer) Est GFR (Non-Af Amer) Random Glucose Calcium Phosphorus Magnesium Total Bilirubin AST ALT Alkaline Phosphatase Troponin I NT-Pro-B Natriuret Pep Total Protein Albumin Globulin Albumin/Globulin Ratio Arterial Blood Potassium Urine Color Yellow Urine Clarity Slighty-cloudy Urine pH 6.0 Ur Specific [place] 1.012 Urine Protein 30 Urine Glucose (UA) Neg Urine Ketones Negative Urine Blood Small Urine Nitrate Negative Urine Bilirubin Negative Urine Urobilinogen 4.0 Ur Leukocyte Esterase Neg Urine RBC (Auto) 6 H Urine Microscopic WBC 1 Urine Bacteria Rare Influenza Typ A,B (EIA) Ur L.pneumophila Ag 01/06/17 04:30 WBC RBC Hgb Hct MCV MCH MCHC RDW Plt Count MPV Neut % (Auto) Lymph % (Auto) Sully % (Auto) Eos % (Auto) Baso % (Auto) Neut # Lymph # Sully # Eos # Baso # Neutrophils % (Manual) Lymphocytes % (Manual) Monocytes % (Manual) Platelet Estimate Anisocytosis (manual) PT INR APTT pCO2 pO2 HCO3 ABG pH ABG Total CO2 ABG O2 Saturation ABG Base Excess Reji Test ABG Potassium A-a O2 Difference Glucose Lactate FiO2 Sodium 139 Potassium 4.2 Chloride 108 H Carbon Dioxide 24 Anion Gap 11 BUN 13 Creatinine 0.9 Est GFR ( Amer) > 60 Est GFR (Non-Af Amer) > 60 Random Glucose 139 H Calcium 8.4 Phosphorus 2.0 L Magnesium 2.4 H Total Bilirubin 0.6 AST 31 ALT 53 Alkaline Phosphatase 63 Troponin I NT-Pro-B Natriuret Pep Total Protein 5.8 L Albumin 3.0 L Globulin 2.8 Albumin/Globulin Ratio 1.1 Arterial Blood Potassium Urine Color Urine Clarity Urine pH Ur Specific [place] Urine Protein Urine Glucose (UA) Urine Ketones Urine Blood Urine Nitrate Urine Bilirubin Urine Urobilinogen Ur Leukocyte Esterase Urine RBC (Auto) Urine Microscopic WBC Urine Bacteria Influenza Typ A,B (EIA) Ur L.pneumophila Ag Assessment & Plan (1) Atrial fibrillation Status: Acute (2) DVT prophylaxis Status: Acute (3) Pneumonia Status: Acute (4) HIV (human immunodeficiency virus infection) Status: Acute (5) Depression Status: Acute (6) Hemoptysis Status: Acute (7) Hemoptysis Status: Acute (8) Testosterone deficiency in male Status: Acute - Assessment and Plan (Free Text) Assessment: 56 yo male with CAP in setting of HIV and new onset a Flutter/ fibrillation await cultures consider echo/ MARCO cont current IV antibiotics consider CT chest / pulm eval
[2017-01-06] MEDS ORDERED: Albuterol-Ipratrop 3 mg / 0.5 (3 ml) UD INH PRN (17:18)
[2017-01-06] MEDS ORDERED: Pneumococcal 23-Valent Vaccine IM ONE (21:00)
[2017-01-07 06:24] VITALS: TEMP 98.5
[2017-01-07 06:38] LABS: BASO % 0.2 % (0.0-2.0); HEMATOCRIT 41.2 % (35.0-51.0); LYMPH # 1.1 K/uL (1.0-4.3); LYMPH % 9.8 % (20.0-40.0); MEAN CELL VOLUME 88.3 fl (80.0-94.0); MEAN CORPUSCULAR HEMOGLOBIN 28.4 pg (27.0-31.0); MEAN CORPUSCULAR HGB CONC 32.2 g/dL (33.0-37.0); MONO # 0.5 K/uL (0.0-0.8); MONO % 4.6 % (0.0-10.0); NEUT # 9.7 K/uL (1.8-7.0); NEUT % 85.4 % (50.0-75.0); NRBC % 0.1 % (0.0-0.0); WHITE BLOOD COUNT 11.3 K/uL (4.8-10.8)
[2017-01-07 07:59] LABS: ALKALINE PHOSPHATASE 60 U/L (38-126); ALT/SGPT 73 U/L (21-72); AST/SGOT 47 U/L (17-59); BILIRUBIN,TOTAL 0.4 mg/dl (0.2-1.3); BLOOD UREA NITROGEN 20 mg/dl (9-20); CALCIUM 8.6 mg/dL (8.4-10.2); CARBON DIOXIDE 23 mmol/L (22-30); CHLORIDE 110 mmol/L (98-107); GFR AFRICAN-AMERICAN > 60; GLUCOSE,RANDOM 99 mg/dL (75-110); POTASSIUM 3.7 MMOL/L (3.6-5.0); SODIUM 143 mmol/l (132-148); TOTAL PROTEIN 5.6 G/DL (6.3-8.2)
--- NOTE | 2017-01-07 10:15 | CP.PCM.PN ---
Subjective - Date & Time of Evaluation Date of Evaluation: 01/07/17 Time of Evaluation: 10:15 - Subjective Subjective: pt is no distress. no cough/congestion. no fc, n/v/d. demanding to be sent home. spoke w/ pts primary and ID specialist spoke w/ [employer] nursing payroll supervisor Objective - Vital Signs/Intake and Output Vital Signs (last 24 hours): Temp Pulse Resp BP Pulse Ox 98.5 F 75 19 143/92 H 96 01/07/17 08:00 01/07/17 08:00 01/07/17 08:00 01/07/17 08:00 01/07/17 06:00 Intake and Output: 01/07/17 01/07/17 06:59 18:59 Intake Total 300 Output Total 1350 Balance -1050 - Medications Medications: Current Medications Acetaminophen (Tylenol 325mg Tab) 650 mg PO Q6H PRN PRN Reason: Fever >100.4 F Acetaminophen/Codeine Phosphate (Tylenol/Codeine 300 Mg/30 Mg) 1 tab PO Q4H PRN PRN Reason: Pain, severe (8-10) Albuterol/Ipratropium (Duoneb 3 Mg/0.5 Mg (3 Ml) Ud) 3 ml INH RQ4 PRN PRN Reason: Shortness of Breath Last Admin: 01/06/17 17:25 Dose: 3 ml Atorvastatin Calcium (Lipitor) 20 mg PO HS [facility] Last Admin: 01/06/17 21:53 Dose: 20 mg Emtricitabine/Tenofovir (Truvada 200 Mg-300 Mg) 1 tab PO DAILY [facility] Last Admin: 01/06/17 09:37 Dose: 1 tab Finasteride (Proscar) 5 mg PO DAILY [facility] Last Admin: 01/06/17 09:37 Dose: 5 mg Gabapentin (Neurontin) 300 mg PO TID [facility] Last Admin: 01/06/17 16:09 Dose: 300 mg Home Med (5-Hydroxytryptophan (5-Htp) [5-Htp]) 1 cap PO DAILY [facility] Home Med (Bupropion Xl [Wellbutrin Xl]) 300 mg PO DAILY [facility] Last Admin: 01/06/17 09:37 Dose: 300 mg Home Med (Testosterone [Androgel]) 1 appl TOP DAILY [facility] Home Med (Valacyclovir Hcl [Valacyclovir]) 500 mg PO DAILY [facility] Last Admin: 01/06/17 09:38 Dose: 500 mg Azithromycin 500 mg/ Sodium (Chloride) 250 mls @ 250 mls/hr IVPB DAILY [facility] Last Admin: 01/06/17 09:41 Dose: 250 mls/hr Ceftriaxone Sodium 1 gm/ (Sodium Chloride) 100 mls @ 100 mls/hr IVPB DAILY [facility] Last Admin: 01/06/17 09:40 Dose: 100 mls/hr Influenza Virus Vaccine (Afluria (Pf)(18yr & Older)) 0.5 ml IM .ONCE ONE Stop: 01/07/17 21:01 Multivitamins/Minerals (Therapeutic-M Tab) 1 tab PO DAILY [facility] Last Admin: 01/06/17 09:37 Dose: 1 tab Nevirapine (Viramune) 200 mg PO BID [facility] Last Admin: 01/06/17 11:07 Dose: 200 mg Oxandrolone (Oxandrin) 10 mg PO BID [facility] Last Admin: 01/06/17 11:06 Dose: 10 mg Tamsulosin HCl (Flomax) 0.4 mg PO DAILY [facility] Last Admin: 01/06/17 09:46 Dose: 0.4 mg Trazodone HCl (Desyrel) 100 mg PO HS [facility] Last Admin: 01/06/17 21:53 Dose: 100 mg - Labs Labs: 01/07/17 05:30 01/07/17 05:30 PT 67.8 Seconds (9.8-13.1) H* D 01/06/17 04:30 INR 6.3 (0.9-1.2) H D 01/06/17 04:30 APTT 46.1 Seconds (25.6-37.1) H 01/06/17 04:30 - Constitutional Appears: Well, Non-toxic, No Acute Distress - Head Exam Head Exam: ATRAUMATIC, NORMAL INSPECTION, NORMOCEPHALIC - Eye Exam Eye Exam: EOMI, Normal appearance, PERRL Pupil Exam: NORMAL ACCOMODATION, PERRL - ENT Exam ENT Exam: Mucous Membranes Moist, Normal Exam - Neck Exam Neck Exam: Full ROM, Normal Inspection. absent: Lymphadenopathy - Respiratory Exam Respiratory Exam: Clear to Ausculation Bilateral, NORMAL BREATHING PATTERN - Cardiovascular Exam Cardiovascular Exam: REGULAR RHYTHM, RRR, +S1, +S2. absent: Murmur - GI/Abdominal Exam GI & Abdominal Exam: Soft, Normal Bowel Sounds. absent: Tenderness - Extremities Exam Extremities Exam: Full ROM, Normal Capillary Refill, Normal Inspection. absent : Joint Swelling, Pedal Edema - Back Exam Back Exam: NORMAL INSPECTION - Neurological Exam Neurological Exam: Alert, Awake, CN II-XII Intact, Normal Gait, Oriented x3 - Psychiatric Exam Psychiatric exam: Normal Affect, Normal Mood - Skin Skin Exam: Dry, Intact, Normal Color, Warm Assessment and Plan (1) DVT prophylaxis Status: Acute (2) Atrial fibrillation Status: Acute (3) Pneumonia Status: Acute (4) Severe sepsis Status: Acute - Assessment and Plan (Free Text) Assessment: (1) DVT prophylaxis Assessment and Plan: scd and ae hose hold coumadin for elev inr ambulation Status: Acute (2) Atrial fibrillation Assessment and Plan: overanticoagulated nsr at present cardio hold coumadin for now Status: Acute (3) Pneumonia Assessment and Plan: zithromax/rocephin duonebs afb x 3 for hemoptysis resp iso id consult hiv viral load nad cd4 count pending Status: Acute (4) Severe sepsis Assessment and Plan: icu care appears to be doing better ivf Status: Acute all doing well, wbc trending down demanding to be released/ama will double check hospital policy/speak w/ value advisor and nurisng payroll supervisor prior to any action
[2017-01-07] MEDS: Emtricitabine-Tenofovir 200 mg-300 mg Tab PO SCH (10:30)
[2017-01-07] MEDS: Multivitamin With Minerals Tab PO SCH (10:30)
[2017-01-07] MEDS: Azithromycin 500 MG in Sodium Chloride 0.9% 250 ML IVPB SCH (10:31)
[2017-01-07 15:25] VITALS: BP 135/87; PULSE 70; RESP 17; O2SAT 95
--- NOTE | 2017-01-07 20:30 | CP.PCM.DIS ---
Provider - Provider Date of Admission: 01/05/17 14:51 Attending physician: Sola Jimenez MD Time Spent in preparation of Discharge (in minutes): 30 Diagnosis - Discharge Diagnosis (1) DVT prophylaxis Status: Acute (2) Atrial fibrillation Status: Acute (3) Pneumonia Status: Acute (4) Severe sepsis Status: Acute Hospital Course - Lab Results Lab Results: Micro Results 01/05/17 14:05 Blood Blood Culture - Preliminary NO GROWTH AFTER 48 HOURS 01/05/17 13:40 Blood Blood Culture - Preliminary NO GROWTH AFTER 48 HOURS 01/05/17 15:43 Urine Urine Culture - Final No Growth (<1,000 CFU/ML) 01/05/17 19:00 Nose MRSA Culture (Admit) - Final MRSA NOT DETECTED Most Recent Lab Values WBC 11.3 K/uL (4.8-10.8) H 01/07/17 05:30 RBC 4.67 Mil/uL (4.40-5.90) 01/07/17 05:30 Hgb 13.3 g/dL (12.0-18.0) 01/07/17 05:30 Hct 41.2 % (35.0-51.0) 01/07/17 05:30 MCV 88.3 fl (80.0-94.0) 01/07/17 05:30 MCH 28.4 pg (27.0-31.0) 01/07/17 05:30 MCHC 32.2 g/dL (33.0-37.0) L 01/07/17 05:30 RDW 17.0 % (11.5-14.5) H 01/07/17 05:30 Plt Count 202 K/uL (130-400) 01/07/17 05:30 MPV 8.0 fl (7.2-11.7) 01/07/17 05:30 Neut % (Auto) 85.4 % (50.0-75.0) H 01/07/17 05:30 Lymph % (Auto) 9.8 % (20.0-40.0) L 01/07/17 05:30 Gray % (Auto) 4.6 % (0.0-10.0) 01/07/17 05:30 Eos % (Auto) 0.0 % (0.0-4.0) 01/07/17 05:30 Baso % (Auto) 0.2 % (0.0-2.0) 01/07/17 05:30 Neut # 9.7 K/uL (1.8-7.0) H 01/07/17 05:30 Lymph # 1.1 K/uL (1.0-4.3) 01/07/17 05:30 Gray # 0.5 K/uL (0.0-0.8) 01/07/17 05:30 Eos # 0.0 K/uL (0.0-0.7) 01/07/17 05:30 Baso # 0.0 K/uL (0.0-0.2) 01/07/17 05:30 Neutrophils % (Manual) 86 % (42-75) H 01/05/17 13:40 Lymphocytes % (Manual) 5 % (20-50) L 01/05/17 13:40 Monocytes % (Manual) 9 % (0-10) 01/05/17 13:40 Platelet Estimate Normal (NORMAL) 01/05/17 13:40 Anisocytosis (manual) Slight 01/05/17 13:40 PT 17.9 Seconds (9.8-13.1) H D 01/07/17 13:45 INR 1.7 (0.9-1.2) H D 01/07/17 13:45 APTT 46.1 Seconds (25.6-37.1) H 01/06/17 04:30 pCO2 29 mm/Hg (35-45) L 01/05/17 13:53 pO2 67 mm/Hg (80-100) L 01/05/17 13:53 HCO3 25.2 mmol/L (21-28) 01/05/17 13:53 ABG pH 7.50 (7.35-7.45) H 01/05/17 13:53 ABG Total CO2 23.5 mmol/L (22-28) 01/05/17 13:53 ABG O2 Saturation 97.2 % (95-98) 01/05/17 13:53 ABG Base Excess 0.6 mmol/L (-2.0-3.0) 01/05/17 13:53 Reji Test Yes 01/05/17 13:53 ABG Potassium 3.9 mmol/L (3.6-5.2) 01/05/17 13:53 A-a O2 Difference 46.0 mm/Hg 01/05/17 13:53 Sodium 129.0 mmol/L (132-148) L 01/05/17 13:53 Chloride 99.0 mmol/L (98-107) 01/05/17 13:53 Glucose 112 mg/dL (75-110) H 01/05/17 13:53 Lactate 1.1 mmol/L (0.7-2.1) 01/05/17 13:53 FiO2 21.0 % 01/05/17 13:53 Sodium 143 mmol/l (132-148) 01/07/17 05:30 Potassium 3.7 MMOL/L (3.6-5.0) 01/07/17 05:30 Chloride 110 mmol/L (98-107) H 01/07/17 05:30 Carbon Dioxide 23 mmol/L (22-30) 01/07/17 05:30 Anion Gap 14 (10-20) 01/07/17 05:30 BUN 20 mg/dl (9-20) 01/07/17 05:30 Creatinine 1.0 mg/dL (0.8-1.5) 01/07/17 05:30 Est GFR ( Amer) > 60 01/07/17 05:30 Est GFR (Non-Af Amer) > 60 01/07/17 05:30 Random Glucose 99 mg/dL (75-110) 01/07/17 05:30 Calcium 8.6 mg/dL (8.4-10.2) 01/07/17 05:30 Phosphorus 2.0 mg/dl (2.5-4.5) L 01/06/17 04:30 Magnesium 2.4 MG/DL (1.6-2.3) H 01/06/17 04:30 Total Bilirubin 0.4 mg/dl (0.2-1.3) 01/07/17 05:30 AST 47 U/L (17-59) 01/07/17 05:30 ALT 73 U/L (21-72) H D 01/07/17 05:30 Alkaline Phosphatase 60 U/L (38-126) 01/07/17 05:30 Troponin I < 0.0120 ng/mL (0.00-0.120) 01/05/17 13:40 NT-Pro-B Natriuret Pep 940 pg/ml (0-900) H 01/05/17 13:40 Total Protein 5.6 G/DL (6.3-8.2) L 01/07/17 05:30 Albumin 2.8 g/dL (3.5-5.0) L 01/07/17 05:30 Globulin 2.8 gm/dL (2.2-3.9) 01/07/17 05:30 Albumin/Globulin Ratio 1.0 (1.0-2.1) 01/07/17 05:30 Arterial Blood Potassium 3.9 mmol/L (3.6-5.2) 01/05/17 13:53 Urine Color Yellow (YELLOW) 01/05/17 15:43 Urine Clarity Slighty-cloudy (Clear) 01/05/17 15:43 Urine pH 6.0 (5.0-8.0) 01/05/17 15:43 Ur Specific [place] 1.012 (1.003-1.030) 01/05/17 15:43 Urine Protein 30 mg/dL (NEGATIVE) 01/05/17 15:43 Urine Glucose (UA) Neg mg/dL (Normal) 01/05/17 15:43 Urine Ketones Negative mg/dL (NEGATIVE) 01/05/17 15:43 Urine Blood Small (NEGATIVE) 01/05/17 15:43 Urine Nitrate Negative (NEGATIVE) 01/05/17 15:43 Urine Bilirubin Negative (NEGATIVE) 01/05/17 15:43 Urine Urobilinogen 4.0 mg/dL (0.2-1.0) 01/05/17 15:43 Ur Leukocyte Esterase Neg Aure/uL (Negative) 01/05/17 15:43 Urine RBC (Auto) 6 /hpf (0-3) H 01/05/17 15:43 Urine Microscopic WBC 1 /hpf (0-5) 01/05/17 15:43 Urine Bacteria Rare (<OCC) 01/05/17 15:43 Influenza Typ A,B (EIA) Negative for flu a/b (NEGATIVE) 01/05/17 13:40 Ur L.pneumophila Ag Negative (NEGATIVE) 01/05/17 07:51 Discharge Exam - Head Exam Head Exam: ATRAUMATIC, NORMAL INSPECTION, NORMOCEPHALIC Discharge Plan - Discharge Medications Prescriptions: Amoxicillin/Clavulanate [Augmentin 875 MG-125 MG] 1 tab PO BID #14 tab Azithromycin [Zithromax] 500 mg PO DAILY #3 tablet - Follow Up Plan Condition: CRITICAL Disposition: AGAINST MEDICAL ADVICE Additional Instructions: pt insistent on signing ama. despite being told his afb are not resulted/ collected. pt feels hemoptysis was a result of dry air and elev inr. [facility] jewel supervisor and dr [facility] yard worker aware of situation. hospital infection nurse aware. dr aguilar aware and pts pmd dr robles aware. pt denies cp, dyspnea, f/c, n/v/d. no cough/congestion. no furhter hemoptysis. 2nd afb collected prior to pt leaving ama. advised that his care is not completed and could risk pulm risk factors or morbidity/mortality. verbalized understnading ofall. pt to contact [facility] monday. final dx-pna, sepsis, rapid afib, hemoptysis. coumadin toxicity. after pt ama noted inr 1.7. will contact pt to resume coumadin and do outpt inr w/ [facility]
[2017-01-07] MEDS ORDERED: Influenza Vaccine 18yr & older 0.5 ML/45 MCG SYR IM ONE (21:00)
--- NOTE | 2017-01-09 08:46 | PN ---
CRITICAL CARE PROGRESS NOTE DATE: 01/07/2017 LOCATION: The patient in ICU, bed 423. TIME SPENT: 25 minutes. SUBJECTIVE: A 56-year-old male HIV positive undetectable viral load on Truvada, Viramune with C. 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 Chest x-ray showed right lower lobe infiltrate. Telemetry showed atrial flutter/atrial fibrillation seen by ID consult. On antibiotic for community-acquired pneumonia in the setting of HIV. Remains alert, awake, and follows commands appropriately. Denies shortness of breath. Had cough productive of blood-tinged expectoration. Remains without further hemoptysis. PHYSICAL EXAMINATION: VITAL SIGNS: Temperature 98.5, heart rate 75, blood pressure 143/92, and saturation 96% on room air. Intake 300 and output 1350, negative balance 1050. Weight 205 pounds. HEAD, EYES, EARS, NOSE AND THROAT: Pupils are reactive. Conjunctivae pale. Sclerae white. NECK: Supple. CHEST: Bilateral breath sounds. Clear to auscultation. HEART: Rhythm irregular. ABDOMEN: Bowel sounds present and soft. EXTREMITIES: Negative edema. NEUROLOGIC: Nonfocal. CURRENT MEDICATIONS: Tylenol 650 q.6 hours p.r.n., acetaminophen with codeine 30 mg 1 tablet q.4 hours p.r.n., DuoNeb 3 mL via nebulizer q.4 hours p.r.n., Lipitor 20 mg at night, ceftriaxone 1 g IV daily, azithromycin 500 mg IV daily, Truvada 200/300 mg 1 tablet daily, Proscar 5 mg p.o. daily, Neurontin 300 mg p.o. 3 times daily, Viramune 200 mg p.o. twice daily, Oxandrin 10 mg p.o. twice daily, trazodone 100 mg p.o. at bedtime, and Flomax 0.4 mg daily. LABORATORY DATA: WBC 11.3, hemoglobin 13.3, hematocrit 41.2, and platelet count 202. PT 67.8, INR 6.3, and PTT 46.1. ABG; pH of 7.5, pCO2 of 29, pO2 of 67, and saturation 97.2. SMA-7. Sodium 143, potassium 3.7, chloride 110, CO2 of 23, blood urea nitrogen 20, and creatinine 1. Total protein 5.6 and albumin 2.8. Urinalysis is negative. Serology; Legionella antigen negative. Influenza A and B negative. Microbiology; MRSA nasal smear negative. Urine culture negative. Blood culture; no growth reported. Chest x-ray dated 01/06/2017 slightly improved patchy infiltrate, right middle lobe. IMPRESSION AND PLAN: 1. Admitted with community-acquired pneumonia in the setting of human immunodeficiency virus, on ceftriaxone and Zithromax, noted to have cough with hemoptysis, remains stable. 2. Atrial flutter/atrial fibrillation, now remains rate controlled. History of hypercoagulable state with recurrent deep venous thrombosis and pulmonary embolism, on Coumadin on hold now. Human immunodeficiency virus positive, on antiretroviral medications, stable. Would continue the same treatment. Monitor for further hemoptysis. No need for urgent correction of coagulopathy_ as the patient continues to remain stable, will hold Coumadin until corected to therapeutic range. The patient wants to be discharged against the medical advice.Risks and consequences of his action against medical advised discussed with pateint, and he understands the risk. Primary physician is aware of the same. Appreciate PMD and ID followup. Tano Trinidad MD MTDAdrian
== END 2017-01-07 14:45 | disposition left against medical advice (07) | DRG 871 ==
LOC: H.ER 12:42 → H.ERHOLD 14:51 → H.ICU/CCU 16:48
PROVIDERS: ADMIT Family Medicine; ATTEND Family Medicine
PROC: 3E0234Z Introduction of Serum, Toxoid and Vaccine into Muscle, Percutaneous Approach (ICD-10-PCS; principal; 2017-01-06)
DX: A41.9 Sepsis, unspecified organism (principal); J18.9 Pneumonia, unspecified organism; D68.59 Other primary thrombophilia; I95.9 Hypotension, unspecified; D68.2 Hereditary deficiency of other clotting factors; I48.92 Unspecified atrial flutter; I48.91 Unspecified atrial fibrillation; R04.2 Hemoptysis; Z21 Asymptomatic human immunodeficiency virus [HIV] infection status; E78.00 Pure hypercholesterolemia, unspecified; R65.20 Severe sepsis without septic shock; R79.1 Abnormal coagulation profile; Z79.01 Long term (current) use of anticoagulants; Z79.899 Other long term (current) drug therapy; Z86.711 Personal history of pulmonary embolism; Z87.01 Personal history of pneumonia (recurrent); Z90.49 Acquired absence of other specified parts of digestive tract; R00.0 Tachycardia, unspecified; Z23 Encounter for immunization